=== PATIENT | male | born 1960 | race Caucasian/White ===

== ENCOUNTER 2019-12-23 19:40 | Inpatient (IN) | payer BC, OTHER ==
[~2019-12-23] VITALS: Ht 182.9 cm; Wt 109.1 kg
[2019-12-23 20:14] LABS: Basophils # (auto) 0 10 ^3/uL (0-0.2); Basophils % (auto) 0.4 % (0.0-2.0); Eosinophils # (auto) 0 10 ^3/uL (0-0.8); Eosinophils % (auto) 0.1 % (0.0-7.0); Hematocrit 48.1 % (41.0-53.0); Hemoglobin 16.9 g/dL (13.5-17.5); Lymphocytes # (auto) 0.5 10 ^3/uL (0.4-5.4); Lymphocytes % (auto) 7.1 % (10.0-50.0); Mean Corpuscular Hemoglobin 33.5 pg (28.0-32.0); Mean Corpuscular Hgb Conc. 35.2 g/dL (32.0-36.0); Mean Corpuscular Volume 95.1 fL (80.0-100.0); Monocytes # (auto) 1.1 10 ^3/uL (0-1.3); Neutrophils # (auto) 6.1 10 ^3/uL (1.6-8.6); Neutrophils % (auto) 78.4 % (37.0-80.0); Nucleated Red Blood Cells % 0.2 %; Platelet Count (auto) 174 10^3/uL (140-450); Red Blood Cells 5.06 10^6/uL (4.5-5.90); White Blood Cell 7.8 10^3/uL (4.4-10.8)
[2019-12-23 20:28] LABS: INR 1.08 (0.9-1.15); Partial Thromboplastin Time 29.9 sec (23.64-32.05)
[2019-12-23 20:30] LABS: Albumin 3.9 g/dL (3.4-5.0); Anion Gap 12 (5-15); Blood Urea Nitrogen 56 mg/dL (7-18); Calcium 8.2 mg/dL (8.5-10.1); Carbon Dioxide 30 mmol/L (21-32); Chloride 70 mmol/L (98-107); Glucose 110 mg/dL (74-106); Potassium 4.1 mmol/L (3.5-5.1)
[2019-12-23 20:35] LABS: Alanine Aminotransferase 58 U/L (16-61); Alkaline Phosphatase 52 U/L (45-117); Aspartate Aminotransferase 42 U/L (15-37); BUN/Creatinine Ratio 19.9; Bilirubin, Total 1.6 mg/dL (0.2-1.0); GFR African American 30 mL/min; GFR Non-African American 25 mL/min; Total Protein 7.2 g/dL (6.4-8.2)
[2019-12-23 20:40] LABS: Sodium 112 mmol/L (136-145)
[2019-12-23] MEDS ORDERED: SODIUM CHL 3% 500 ML IV ONE ×2 (21:00→23:00)
[2019-12-23] MEDS ORDERED: NITROGLYCERIN 0.4 MG SL TAB SL PRN (23:00)
[2019-12-23] MEDS ORDERED: ACETAMINOPHEN 325 MG TAB PO PRN (23:00)
[2019-12-23] MEDS ORDERED: ONDANSETRON HCL 4 MG/2 ML VIAL IV PRN (23:00)
[2019-12-23] MEDS ORDERED: LOPERAMIDE HCL 2 MG CAP PO PRN (23:00)
[2019-12-23] MEDS ORDERED: MORPHINE SULF INJ 2 MG/ML SYRINGE 1ML IV PRN (23:00)
[2019-12-23] MEDS ORDERED: TEMAZEPAM 15 MG CAP PO PRN (23:00)
[2019-12-23 23:37] LABS: Urine Bacteria FEW /hpf (None Seen); Urine Blood Negative /uL (Negative); Urine Hyaline Cast FEW /lpf (0 - 2); Urine Specific Gravity 1.007 (1.001-1.035); Urine WBC 1 /hpf (0 - 3)
[2019-12-24] VITALS (8 sets, daily range): BP systolic 92–158; BP diastolic 55–78
[2019-12-24] MEDS ORDERED: ALBUMIN 5% 250 ML IV ONE (00:30)
[2019-12-24 02:13] LABS: Basophils # (auto) 0 10 ^3/uL (0-0.2); Basophils % (auto) 0.6 % (0.0-2.0); Eosinophils # (auto) 0 10 ^3/uL (0-0.8); Eosinophils % (auto) 0.3 % (0.0-7.0); Hematocrit 49.6 % (41.0-53.0); Hemoglobin 17.1 g/dL (13.5-17.5); Lymphocytes # (auto) 0.5 10 ^3/uL (0.4-5.4); Mean Corpuscular Hemoglobin 33.6 pg (28.0-32.0); Mean Corpuscular Hgb Conc. 34.5 g/dL (32.0-36.0); Mean Corpuscular Volume 97.3 fL (80.0-100.0); Monocytes # (auto) 0.9 10 ^3/uL (0-1.3); Monocytes % (auto) 12.6 % (0.0-12.0); Neutrophils # (auto) 5.4 10 ^3/uL (1.6-8.6); Neutrophils % (auto) 79.5 % (37.0-80.0); Platelet Count (auto) 170 10^3/uL (140-450); Red Blood Cells 5.09 10^6/uL (4.5-5.90); Red Cell Distribution Width 14.9 % (11.8-14.3); White Blood Cell 6.8 10^3/uL (4.4-10.8)
[2019-12-24 02:26] LABS: BUN/Creatinine Ratio 20.9; Calcium 8.3 mg/dL (8.5-10.1)
--- NOTE | 2019-12-24 07:30 | NUR ---
Opening Shift Note Assumed care of patient, awake and alert. No S/S of distress/SOB or pain. Patient saturation 95% at room air. See interventions for complete assessment. Bed locked on low position, side rails up x2, bed alarms on at all times, call guzmán within reach, instructed on POC and to call for assist PRN, will continue to monitor for changes Q1hr and PRN.
[2019-12-24 08:12] LABS: BUN/Creatinine Ratio 22.9; Calcium 8.4 mg/dL (8.5-10.1); Potassium 3.7 mmol/L (3.5-5.1)
[2019-12-24] MEDS: ENOXAPARIN SOD 40 MG/0.4 ML SYRINGE SC SCH (09:34)
[2019-12-24] MEDS: FAMOTIDINE 20 MG TAB PO SCH ×2 (09:34→21:34)
[2019-12-24] MEDS ORDERED: OPTISON 3ml Vial for INJ IV ONE (11:11)
--- NOTE | 2019-12-24 11:15 | NUR ---
LT AC IV puffy and pink, discontinued with sterile technique, catheter fully intact. Pressure dressing applied to site. Patient tolerated procedure well.
--- NOTE | 2019-12-24 11:20 | NUR ---
IV insertion IV access obtained, via clean sterile technique by inserting 22 gauge catheter at RT forearm after one attempt. IV secured properly. No trauma to site. Patient tolerated procedure well.
--- NOTE | 2019-12-24 11:25 | NUR ---
Echocardiogram being done at bedside, assisted with bubble study and optison push. Patient denies any drug or blood product allergies. Optison lot number [id number]. 1ml Optison SIVP given over 30 seconds. No adverse reaction noted. Will continue to monitor patient.
--- NOTE | 2019-12-24 11:42 | NUR ---
Dr Wynn at bedside, updated on patient's status. Patient seen and examined. Received verbal order for Regular diet, read back and verified. Will carry out.
[2019-12-24] MEDS ORDERED: MAGNESIUM OXIDE 400 MG TAB PO ONE (12:15)
--- NOTE | 2019-12-24 12:28 | NUR ---
Received call from patient's Shandra who's able to provide password. Updated on patient's status and POC, verbalized understanding. All questions and concerns addressed.
[2019-12-24] MEDS ORDERED: SODIUM CHLORIDE 0.9% 1,000 ML IV SCH ×2 (12:30→13:45)
[2019-12-24] MEDS: MAGNESIUM SULFATE 1GM/100ML 100 ML IV SCH ×2 (12:42→13:43)
[2019-12-24] MEDS ORDERED: HYDR50TA15 PO (12:53)
[2019-12-24] MEDS ORDERED: LISI40TA PO (12:53)
[2019-12-24] MEDS ORDERED: FURO40TA4 PO (12:53)
[2019-12-24] MEDS ORDERED: ISOS20TA56 PO (12:53)
[2019-12-24] MEDS ORDERED: AMLO5TAB15 PO (12:53)
[2019-12-24] MEDS ORDERED: ASPI-498 OR (12:53)
--- NOTE | 2019-12-24 13:54 | NUR ---
Urine sample sent to lab
[2019-12-24 15:06] LABS: Sodium Urine 50 mmol/L (40-220)
[2019-12-24 15:09] LABS: Creatinine, Urine 47 mg/dL (30.0-125.0)
[2019-12-24 17:05] LABS: BUN/Creatinine Ratio 21.6; Calcium 8.7 mg/dL (8.5-10.1); Potassium 3.9 mmol/L (3.5-5.1)
--- NOTE | 2019-12-24 17:07 | NUR ---
BMP still pending
--- NOTE | 2019-12-24 17:20 | NUR ---
Paged Dr Cottrell and called back, updated on patient's status. Informed of patient's sodium level 120, no new orders at this time.
--- NOTE | 2019-12-24 19:15 | NUR ---
Assumed care, full assessment done; see interventions. Patient ambulated to bathroom with standby assist, steady gate noted. Hemodynamically stable. Right hand 22 G IV intact and patent, NS infusing per IV spreadsheet.
[2019-12-24] MEDS: methIMAzole 5 MG TAB PO SCH (22:00)
--- NOTE | 2019-12-24 22:14 | NUR ---
New order for Tapazole noted for administration at 2200; spoke with pharmacist who stated she was concerned about the "need" for the medication but that she would verify it for administration los and JAHAIRA RN can follow up with . Attempted to page Dr. 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
[2019-12-25 03:45] LABS: BUN/Creatinine Ratio 22.9; Calcium 8.8 mg/dL (8.5-10.1); Potassium 3.6 mmol/L (3.5-5.1)
[2019-12-25 04:00] VITALS: BP 123/69
--- NOTE | 2019-12-25 06:47 | NUR ---
Called pharmacy to send tapazole.
[2019-12-25 07:40] VITALS: BP 130/79
[2019-12-25] MEDS ORDERED: FUROSEMIDE 40 MG/4 ML VIAL IV ONE (08:15)
--- NOTE | 2019-12-25 09:28 | NUR ---
Resumed care at 0710, orders reviewed and ongoing assessments being done. Being treated for multiple problems. Upon arrival in bed and able to make needs known, in no acute distress and no complaints. Is able to move all extremities and participate with self care. Reviewed plan of care, comprehensive. Out of bed and sitting in chair at this time. Received call from Dr. Shirley, reviewed labs and medication, orders obtained and processed.
--- NOTE | 2019-12-25 10:05 | NUR ---
Dr. Wynn in to round. Discussed condition and plan of care.
[2019-12-25] MEDS: MAGNESIUM OXIDE 400 MG TAB PO SCH (10:20)
[2019-12-25] MEDS: ENOXAPARIN SOD 40 MG/0.4 ML SYRINGE SC SCH (10:20)
[2019-12-25] MEDS: FAMOTIDINE 20 MG TAB PO SCH (10:20)
[2019-12-25 11:40] VITALS: BP 114/53
--- NOTE | 2019-12-25 13:48 | NUR ---
Faxed medical release form to [facility] in [facility] (Dr. Wynn request) Consent obtained.
[2019-12-25] MEDS: methIMAzole 5 MG TAB PO SCH ×2 (14:00→22:00)
[2019-12-25 14:10] LABS: BUN/Creatinine Ratio 18.3; Calcium 8.9 mg/dL (8.5-10.1); Potassium 3.7 mmol/L (3.5-5.1)
--- NOTE | 2019-12-25 15:39 | NUR ---
Dr. Shirley rounded at 1150. Discussed condition and plan of care. Per Dr. Shirley strict I & O's and reinforced importance of using the urinal to void in.
--- NOTE | 2019-12-25 15:45 | NUR ---
Held scheduled 1400 Tapazole, new order. Per patient doctor did not discuss abnormal lab result and possible hyperthyroidism. Contacted Dr. Wynn at 1500. He could not talk and will call back.
[2019-12-25 15:49] VITALS: BP 117/69
--- NOTE | 2019-12-25 18:04 | NUR ---
Dr. Ann consulted for cardiology. Discussed plan of care and new orders reviewed.
--- NOTE | 2019-12-25 18:25 | NUR ---
In bed eating dinner in no acute distress. Remains in AFIB with a rate 99-112. Encourage to maintain nasal cannula on at all times. When on room air, pulse oximetry drops to 86-88%.
[2019-12-25 20:00] VITALS: BP 115/65
--- NOTE | 2019-12-25 22:00 | NUR ---
Stable. Refusing medication for thyroid until MD explains reason for medication. States he "takes too many pills at home as it is." Will consider taking after speaking to MD. Will continue to monitor.
[2019-12-25] MEDS: ENOXAPARIN SOD 60 MG/0.6 ML SYRINGE SC SCH (23:09)
[2019-12-25] MEDS: DRONEDARONE HCL 400 MG TAB PO SCH (23:09)
[2019-12-26] VITALS: BP 115/60
--- NOTE | 2019-12-26 | NUR ---
Pt has remained stable since start of shift. Has spent most of his time out of bed in his chair at bedside. Compliant with using urinal. Urine sample sent to lab. Will continue to monitor.
[2019-12-26 00:08] LABS: Protein, Urine 193.6 mg/dL (0.0-11.9)
[2019-12-26 04:30] LABS: Anion Gap 8 (5-15); BUN/Creatinine Ratio 24.1; Blood Urea Nitrogen 35 mg/dL (7-18); Calcium 8.5 mg/dL (8.5-10.1); Carbon Dioxide 31 mmol/L (21-32); Chloride 82 mmol/L (98-107); GFR African American 64 mL/min; GFR Non-African American 53 mL/min; Glucose 87 mg/dL (74-106); Magnesium 1.6 mg/dL (1.6-2.6); Potassium 4.3 mmol/L (3.5-5.1); Sodium 121 mmol/L (136-145)
--- NOTE | 2019-12-26 05:47 | NUR ---
Stable at this time. Up in his chair at bedside. Anxious to go home. Will continue to monitor.
--- NOTE | 2019-12-26 07:23 | NUR ---
Pt remains stable. Report given to AM shift, care endorsed.
--- NOTE | 2019-12-26 07:30 | NUR ---
Provided the information about Multaq and Tapazole to patient.
--- NOTE | 2019-12-26 07:35 | NUR ---
Opening Shift Note Assumed care of patient, awake and alert, sitting on the cjair and watching TV, stated that would like to go home if MD okay. No S/S of distress/SOB or pain noted. Instructed on POC and to call for assist PRN, will continue to monitor for changes Q1hr and PRN.
--- NOTE | 2019-12-26 08:10 | NUR ---
Patient sitting on the chair, breakfast provided.
[2019-12-26] MEDS: methIMAzole 5 MG TAB PO SCH (08:49)
[2019-12-26] MEDS: DRONEDARONE HCL 400 MG TAB PO SCH ×2 (08:50→20:53)
[2019-12-26] MEDS: MAGNESIUM OXIDE 400 MG TAB PO SCH (08:51)
[2019-12-26] MEDS: ENOXAPARIN SOD 60 MG/0.6 ML SYRINGE SC SCH ×2 (08:52→20:54)
[2019-12-26] MEDS: ASPirin 81 mg TAB PO SCH (08:52)
--- NOTE | 2019-12-26 09:08 | NUR ---
Room air at this time, patient ambulate to bathroom. Lawanda to take Tapazole after provided the information about medication, no question about the medication at this time.
--- NOTE | 2019-12-26 09:28 | NUR ---
Room air, sitting on the chair, O2 saturation 83-87%. Patient stated that has CPAP at home using at night time.
--- NOTE | 2019-12-26 09:39 | NUR ---
On O2 NC 2 LPM, patient still sitting up on the chair, watching TV, no complaining any symptoms, O2 saturation 92-94%. Will continue to monitor and care.
[2019-12-26] MEDS ORDERED: FAMOTIDINE 20 MG TAB PO SCH (10:00)
[2019-12-26] MEDS ORDERED: FUROSEMIDE 40 MG/4 ML VIAL IV SCH (10:00)
[2019-12-26] MEDS ORDERED: POTASSIUM EFFERVESENT TAB 25 MEQ PO ONE (10:30)
--- NOTE | 2019-12-26 10:41 | NUR ---
Provided the information about Cardioversion and NAYELI per patient requested.
--- NOTE | 2019-12-26 11:20 | NUR ---
Dr. Chino at the bedside, seen and examined patient at his time, plan of care discussed with patient, received new orders, patient made aware and would like to discharge home today. MD aware but patient isn't stable to discharge today, MD explained about the risks of leaving against medical advise. Called and spoke to his on the phone, updated and explained the plan of care. Patient agreed to stay at this time. Will continue to monitor and care.
--- NOTE | 2019-12-26 11:43 | NUR ---
Received a call from Dr. Ann, updated patient's condition and Lab result this morning. Received new orders, will carry out, Patient and his made aware about the plan.
[2019-12-26] MEDS: METOPROLOL TARTRATE 25 MG TAB PO ONE ×2 (11:45→12:06)
[2019-12-26] MEDS ORDERED: METOPROLOL TARTRATE 25 MG TAB ONE (11:58)
[2019-12-26] MEDS: MAGNESIUM SULFATE 1GM/100ML 100 ML IV SCH ×3 (11:58→15:00)
[2019-12-26 12:00] VITALS: BP 104/62
--- NOTE | 2019-12-26 12:21 | NUR ---
Room air O2 saturation 85-88%, will continue to monitor and care, patient went to the restroom for BM, patient stated that still having loose stool but not often, will continue to monitor and care.
--- NOTE | 2019-12-26 12:30 | NUR ---
On O@ NC 2LPM, O2 saturation 94-96%, will continue to monitor and care, Lunch tray provided.
--- NOTE | 2019-12-26 13:33 | NUR ---
Dr. Shirley at the bedside, seen and examined patient at this time, plan of care discussed with patient, will keep monitor I&O. No IV fluid, patient made was informed about fluid restriction to 800 ml/day, no ICE chip. Patient agreed with the plan.
--- NOTE | 2019-12-26 14:00 | NUR ---
SBP 90-95 mmHg, informed Dr. Ann about holding Metoprolol due to low blood pressure. Receive order for decreased Metoprolol to 12.5 mg PO BID and hold if SBP < 100 mmHg. Patient made aware about the plan. Will continue to monitor and care.
[2019-12-26] MEDS ORDERED: METOPROLOL TARTRATE 25 MG TAB PO ONE (14:15)
--- NOTE | 2019-12-26 15:20 | NUR ---
HR 85-90 /min after Metoprolol given. On O2 NC 2 LPM, O2 saturation 94%. Will continue to monitor and care.
--- NOTE | 2019-12-26 15:54 | NUR ---
Patient went to the bathroom. Partial linen changed. Hygiene care supplies provided.
[2019-12-26 16:00] VITALS: BP 116/77
--- NOTE | 2019-12-26 16:18 | NUR ---
Came back from the bathroom, stated that feeling better, went back to bed, keep legs elevated, patient lying on the bed and watching TV.
--- NOTE | 2019-12-26 17:30 | NUR ---
Patient walked at the hallway and went back to his room, sitting on the chair. No complaining of SOB noted.
[2019-12-26] MEDS: FUROSEMIDE 40 MG/4 ML VIAL IV SCH (17:53)
--- NOTE | 2019-12-26 18:09 | NUR ---
IV insertion IV access obtained, via clean sterile technique by inserting 20 gauge catheter at right forearm after 1 attempt. IV secured properly. No trauma to site. Patient tolerated procedure well.
--- NOTE | 2019-12-26 18:10 | NUR ---
IV removal from right hand IV DC'd with sterile technique, catheter fully intact. Pressure dressing applied to site. Patient tolerated procedure well.
--- NOTE | 2019-12-26 18:12 | NUR ---
Dinner tray provided, patient sitting on the chair.
--- NOTE | 2019-12-26 18:55 | NUR ---
Patient went back to bed, on o2 NC 3 LPM, O2 saturation 92-94%. HR 90-110 with A.Fib, SBP 100-130 mmHg. Will continue to monitor and care.
[2019-12-26 20:00] VITALS: BP 120/69
[2019-12-26] MEDS: FAMOTIDINE 20 MG TAB PO SCH (20:54)
[2019-12-26] MEDS ORDERED: METOPROLOL TARTRATE 25 MG TAB PO SCH ×2 (22:00)
--- NOTE | 2019-12-26 23:38 | NUR ---
Since beginning of shift pt seems confused and is progressively getting more confused. No Sleep aid was given. Pt has been wandering all shift and detaching himself from the monitor, oxygen, and pulse ox off and on all shift. Pt has not slept. At one point pt thought RN was under his bed teasing him by touching his feet. Pt did not sleep last night either except for a couple of hours, and in that time stated he had bad and weird dreams. Last night pt was given a sleep aid and in the AM pt and RN decided that the following night he would not have another sleep aid. ABG ordered to see if pt is compensating in some way and causing the confusion. Pt currently up in chair, off O2 and pulse ox talking on phone to his . Pt is upset that he has to be hooked up to the monitor. Will continue to monitor.
[2019-12-27] VITALS: BP 116/77
--- NOTE | 2019-12-27 01:09 | NUR ---
Pt is very confused. Having hallucinations. paged for bipap orders and also to let him know what is happening. RN looked up Lopressor side effect and on rare occasion pt can have confusion and side effects. Since start of shift pt has been slightly confused and unsteady. A 2200 dose was given and pt has gotten worse. Upon researching drug is it my observation that these rare side effects could be from Lopressor. Assessment was noted and was relayed to Dr. Patel. stated to hold drug for now, and MD was informed that no dose was due but would hold AM dose and inform Dr. Ann in AM as he is the MD that ordered the Lopressor. is extremely upset as pt is calling on cell phone. Pt woke thinking there was someone in his room and a car was driving by his door. Assure pt he is ok and being looked after. Bipap ordered, RT called and will continue to monitor.
--- NOTE | 2019-12-27 01:20 | NUR ---
RT at bedside setting up Bipap. Pt is having a hard time with time and place. Reorienting but very difficult.
[2019-12-27 01:27] VITALS: BP 120/69
[2019-12-27] MEDS ORDERED: LORazepam 2MG/ML-1ML VIAL IV PRN (02:15)
--- NOTE | 2019-12-27 03:43 | NUR ---
Ativan has made pt worse. Sitter now at bedside for safety although pt got up and ripped off his leads and came out of his room looking for the bathroom. Pt is completely confused. LEAD PYTHON DEVELOPER now a sitter at bedside. Will continue to monitor.
--- NOTE | 2019-12-27 03:45 | NUR ---
Pt now pulled out IV while in the bathroom. Will reset.
[2019-12-27 03:56] LABS: Basophils # (auto) 0.1 10 ^3/uL (0-0.2); Basophils % (auto) 1.2 % (0.0-2.0); Eosinophils # (auto) 0.1 10 ^3/uL (0-0.8); Eosinophils % (auto) 1.3 % (0.0-7.0); Hematocrit 46.2 % (41.0-53.0); Hemoglobin 15.7 g/dL (13.5-17.5); Lymphocytes # (auto) 0.5 10 ^3/uL (0.4-5.4); Lymphocytes % (auto) 9.1 % (10.0-50.0); Mean Corpuscular Volume 96.9 fL (80.0-100.0); Monocytes # (auto) 0.8 10 ^3/uL (0-1.3); Neutrophils # (auto) 3.7 10 ^3/uL (1.6-8.6); Neutrophils % (auto) 73.4 % (37.0-80.0); Nucleated Red Blood Cells % 0.2 %; Platelet Count (auto) 130 10^3/uL (140-450); Red Blood Cells 4.76 10^6/uL (4.5-5.90); Red Cell Distribution Width 14.7 % (11.8-14.3); White Blood Cell 5.1 10^3/uL (4.4-10.8)
[2019-12-27 04:14] LABS: Potassium 3.9 mmol/L (3.5-5.1)
[2019-12-27 04:17] LABS: Albumin 3.3 g/dL (3.4-5.0); BUN/Creatinine Ratio 22.9; Magnesium 1.9 mg/dL (1.6-2.6)
[2019-12-27 04:20] LABS: Bilirubin, Total 1.8 mg/dL (0.2-1.0); Total Protein 6.8 g/dL (6.4-8.2)
--- NOTE | 2019-12-27 04:41 | NUR ---
New IV to right forearm, 22g, pt tolerated well. Sitter remains at bedside.
--- NOTE | 2019-12-27 06:13 | NUR ---
Pt remains confused. Insists he is at a market. Refuses to go to his room. Removed all leads and monitoring items, cut off his fall band.
--- NOTE | 2019-12-27 06:40 | NUR ---
Security was called. Just to show support. Pt went back to his room and allowed me to place him back on monitor. They will allow to come sit with him and calm him. Pt is very mad at RN thinking she tried to get him arrested. Pulled out IV and stated he can do whatever he wants with his arm. Is only keeping monitor leads on at this time. Informed pt his will be here in 1 hour.
--- NOTE | 2019-12-27 07:26 | NUR ---
at bedside. Pt pulled off monitor leads before she came. Because Security is on the unit due to bringing to floor, pt allowed ATTORNEY to reapply cardiac leads. Report given to AM shift, care endorsed.
[2019-12-27] MEDS ORDERED: levoFLOXacin 500 MG TAB PO ONE (07:30)
--- NOTE | 2019-12-27 07:45 | NUR ---
Opening Shift Note Assumed care of patient, awake, his at the bedside, patient sitting on the chair, orientated to person, place, time, but not situation, patient stated that i'm working in the [facility], patient said he remembered me but couldn't remember my name, still has hallucination, reorientation needed. No S/S of distress/SOB or pain noted, still pulling put the ekg monitor tech, refused to have IV in place at this time, will try after breakfast. Instructed (giving to his and patient) on POC and to call for assist PRN, will continue to monitor for changes Q1hr and PRN.
[2019-12-27 08:00] VITALS: BP 123/75
--- NOTE | 2019-12-27 08:05 | NUR ---
Faxed food requested to kitchen, line is busy. Called and left the message to Furrier Designer at this time.
--- NOTE | 2019-12-27 08:08 | NUR ---
Received a call back from Dr. Ann, informed MD about patient having period of confusion and hallucination possible due to Medication (Metoprolol), reported the lab result, received orders for D/C Metoprolol and magnesium 800 mg PO BID . Will carry out, patient and his made aware about the plan.
--- NOTE | 2019-12-27 09:11 | NUR ---
Faxed still busy for the kitchen, called and left the message again to motor rebuilder regarding patient doesn't like to food nereida the tray. Provided the sandwich from the refrigerator. 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 His at the bedside, reorientated. Will continue to monitor and care.
[2019-12-27] MEDS: MAGNESIUM OXIDE 400 MG TAB PO SCH ×2 (09:35→22:22)
[2019-12-27] MEDS: FAMOTIDINE 20 MG TAB PO SCH ×2 (09:35→22:21)
[2019-12-27] MEDS: methIMAzole 5 MG TAB PO SCH (09:35)
[2019-12-27] MEDS: POTASSIUM EFFERVESENT TAB 25 MEQ PO SCH (09:35)
[2019-12-27] MEDS: DRONEDARONE HCL 400 MG TAB PO SCH ×2 (09:36→22:22)
[2019-12-27] MEDS: ENOXAPARIN SOD 60 MG/0.6 ML SYRINGE SC SCH ×2 (09:36→22:21)
[2019-12-27] MEDS: ASPirin 81 mg TAB PO SCH (09:36)
[2019-12-27] MEDS: FUROSEMIDE 40 MG/4 ML VIAL IV SCH ×2 (09:36→17:54)
--- NOTE | 2019-12-27 09:56 | NUR ---
IV insertion IV access obtained, via clean sterile technique by inserting 20 gauge catheter at right forearm after 1 attempt(s). IV secured properly. No trauma to site. Patient tolerated procedure well.
--- NOTE | 2019-12-27 10:01 | NUR ---
His at the bedside, breakfast tray provided after sent the request to automotive technology instructor. Patient sitting on the chair. took the morning pills as ordered.
--- NOTE | 2019-12-27 10:10 | NUR ---
Patient still confused, sitting on the chair has his at the bedside, his (Juliet) signed the consent for NAYELI and/or Cardioversion.
--- NOTE | 2019-12-27 10:31 | NUR ---
Sent the urine sample to lab.
--- NOTE | 2019-12-27 10:40 | NUR ---
Dr. Shirley at the bedside, seen and examined patient at this time, plan of care discussed with patient and his , received new orders, patient made aware. Will continue to monitor and care.
--- NOTE | 2019-12-27 10:49 | NUR ---
Patient was taken to Radiology for CT chest.
[2019-12-27] MEDS: UREA 15gm PO Powder PKG PO SCH ×2 (11:07→22:20)
--- NOTE | 2019-12-27 11:07 | NUR ---
Patient came back from Radiology. Still refused to be connected to Monitor and O2. His at the bedside, patient still confused, still thinking that [facility] [place]. Reoriented and explained. Patient less aggressive when he has his occupied. Room air O2 saturation 88%. Will continue to monitor and care.
[2019-12-27 11:27] VITALS: BP 169/80
--- NOTE | 2019-12-27 11:50 | NUR ---
Patient went back to bed, less aggressive with his at the bedside. Connected to monitor at this time. Still refused O2 NC, room air O2 saturation 88-92%, will continue to monitor and care.
[2019-12-27 11:51] VITALS: BP 134/79
--- NOTE | 2019-12-27 12:30 | NUR ---
Dr. Chino at the bedside, seen and examined patient at this time, plan of care discussed with patient and his , answered all the questions. D/C some medications. Will continue to monitor and care.
--- NOTE | 2019-12-27 13:34 | NUR ---
Patient sitting on the chair, finished his Lunch, had around 90%, no N/V noted.
--- NOTE | 2019-12-27 13:44 | NUR ---
Called and left the message to Dr. Simpson for new consultation. Received a call back from Dr. Simpson, today will be Dr. Erazo that see patient. Dr. Calvin nielson informed Dr. Erazo about new consultation.
--- NOTE | 2019-12-27 14:18 | NUR ---
Nutrition Assessment Notes please see attached link fo complete assessment Est. Needs ABW 95 [id number] kcals (23-25 kcal/kgBW). 76-95 gms/day (0.8-1.0gm/kgBW r/t elev RFT). Will continue to monitor pertinent labs and reassess nutrient need prn. Addendum: 12/27/19 at [address] Amended: Links added.
--- NOTE | 2019-12-27 15:20 | NUR ---
Patient is sleeping at this time, able to take a short nap around 30-45 minutes earlier as well. His still at the bedside. No aggressive behavior noted.
--- NOTE | 2019-12-27 17:34 | NUR ---
Dr. Erazo at the bedside, seen and examined patient at this time. Received order for CXR tomorrow, ultrasound both legs R/O DVT, spoke to Lab, will add the orders for Urine legionella, and Microplasma (IgM) antibody, will check for [facility]C Covid inhouse.
--- NOTE | 2019-12-27 18:21 | NUR ---
Sent [facility] inhouse Covid 19 to lab.
--- NOTE | 2019-12-27 18:22 | NUR ---
Patient sitting up on the chair, Dinner tray provided.
--- NOTE | 2019-12-27 18:38 | NUR ---
Ultrasound at the unit, will postpone the test to tomorrow due to waiting for the result of [facility] inhouse Covid.
[2019-12-27 20:00] VITALS: BP 126/77
--- NOTE | 2019-12-27 20:00 | NUR ---
ASSESSMENT PATIENT IS AWAKE, ALERT, ORIENTED BUT GET CONFUSED ON SITUATION. EKG SHOWS AFIB. OTHER VITAL SIGNS ARE STABLE.
[2019-12-28] VITALS (19 sets, daily range): BP systolic 105–151; BP diastolic 63–105
--- NOTE | 2019-12-28 | NUR ---
PATIENT IS NPO FOR PROCEDURE TODAY.
[2019-12-28 03:50] LABS: Hematocrit 48.5 % (41.0-53.0); Hemoglobin 16.7 g/dL (13.5-17.5); Mean Corpuscular Hemoglobin 33.4 pg (28.0-32.0); Mean Corpuscular Hgb Conc. 34.5 g/dL (32.0-36.0); Mean Corpuscular Volume 96.9 fL (80.0-100.0); Platelet Count (auto) 131 10^3/uL (140-450); Red Cell Distribution Width 14.4 % (11.8-14.3); White Blood Cell 4.3 10^3/uL (4.4-10.8)
[2019-12-28 04:00] LABS: Basophils % (manual) 0 (0.0-2.0); Blast Cells 0; Metamyelocytes % 0; Myelocytes % 0; Promyelocytes % 0; Reactive Lymphocytes 0
[2019-12-28 04:08] LABS: Calcium 9.3 mg/dL (8.5-10.1); Potassium 3.8 mmol/L (3.5-5.1)
[2019-12-28 04:10] LABS: BUN/Creatinine Ratio 32.7
[2019-12-28] MEDS: FUROSEMIDE 40 MG/4 ML VIAL IV SCH ×2 (05:47→18:29)
--- NOTE | 2019-12-28 06:01 | NUR ---
Respiratory note: PT IS USING THE RESTROOM. PT IS OFF OXYGEN WITH SPO2 97% HR 97. RR 16. NO SIGNS OR SYMPTOMS OF RESPIRATORY DISTRESS NOTED AT THIS TIME. WILL CONTINUE TO MONITOR ORDERED. Addendum: 12/28/19 at 0604 by CHANDLER GARDNER RT PT IS NOT ON BIPAP.
[2019-12-28 06:30] LABS: Band Neutrophils % (manual) 5; Eosinophils % (manual) 3 (0-7); Lymphocytes % (manual) 23 (10.0-50.0); Monocytes % (manual) 22 (0-12)
[2019-12-28] MEDS: ASPirin 81 mg TAB PO SCH ×2 (09:11→10:00)
[2019-12-28] MEDS: FAMOTIDINE 20 MG TAB PO SCH ×3 (09:11→21:33)
[2019-12-28] MEDS: DRONEDARONE HCL 400 MG TAB PO SCH ×3 (09:11→18:28)
[2019-12-28] MEDS: levoFLOXacin 500 MG TAB PO SCH ×3 (09:12→18:31)
[2019-12-28] MEDS: MAGNESIUM OXIDE 400 MG TAB PO SCH ×2 (09:12→10:00)
[2019-12-28] MEDS: ENOXAPARIN SOD 60 MG/0.6 ML SYRINGE SC SCH ×2 (09:14→10:00)
--- NOTE | 2019-12-28 09:34 | NUR ---
BREAKFAST TRAY HELD FOR PROCEDURE.
[2019-12-28] MEDS: methIMAzole 5 MG TAB PO SCH (10:00)
[2019-12-28] MEDS ORDERED: levoFLOXacin 500 MG TAB PO SCH (10:00)
[2019-12-28] MEDS: POTASSIUM EFFERVESENT TAB 25 MEQ PO SCH (10:00)
--- NOTE | 2019-12-28 10:00 | NUR ---
ACTIVITY PATIENT OOB SITTING IN CHAIR, AMBULATING AROUND ROOM INDEPENDENTLY.
--- NOTE | 2019-12-28 10:00 | NUR ---
PO MEDICATIONS HELD FOR PROCEDURE. LOVENOX HELD FOR PROCEDURE.
--- NOTE | 2019-12-28 11:35 | NUR ---
PROCEDURE CHANGED TO BEDSIDE AT 1600. PATIENT NOTIFIED AND VERBALIZES UNDERSTANDING. PT TO REMAIN NPO.
--- NOTE | 2019-12-28 12:00 | NUR ---
LUNCH HELD. PT NPO FOR PROCEDURE.
--- NOTE | 2019-12-28 14:00 | NUR ---
PATIENT OOB SITTING IN CHAIR. PATIENT UPDATED AT BEDSIDE VIA PHONE. NO DISTRESS NOTED.
[2019-12-28] MEDS ORDERED: diphenhdrAMINE HCL 50 MG/1 ML VL ONE (15:12)
[2019-12-28] MEDS ORDERED: fentaNYL CITRATE 100 MCG/2 ML VL ONE (15:13)
[2019-12-28] MEDS ORDERED: MIDAZOLAM HCL 1MG/1ML-2 ML VIAL ONE (15:13)
[2019-12-28] MEDS ORDERED: diphenhdrAMINE HCL 50 MG/1 ML VL IV ONE (15:45)
[2019-12-28] MEDS ORDERED: MIDAZOLAM HCL 5 MG/ML-1ML VIAL IV ONE (15:45)
[2019-12-28] MEDS ORDERED: fentaNYL CITRATE 100 MCG/2 ML VL IV ONE (15:45)
[2019-12-28] MEDS ORDERED: LIDOCAINE VISCOUS 2% 15ML UD ONE (16:31)
--- NOTE | 2019-12-28 16:32 | NUR ---
BEDSIDE PROCEDURE BEDSIDE NAYELI PERFORMED AT BEDSIDE: DR. CRISTINA UPDATED PATIENT ON PROCEDURE. CONSENTS COMPLETED. PT NPO. PT AT BEDSIDE. CHARGE NURSE AT BEDSIDE. 1632 1MG VERSED GIVEN IVP 25MCG OF FENT IVP. PT ON 4L/MIN NC POX 95-96%. 1638 BENADRYL IVP 50MG IVP GIVEN ORDERED. 1639 VERSED IVP 1MG GIVEN 200 JOULES CARDIOVERSION COMPLETED BY MD AT BEDSIDE. PATIENT NOTED IN SR THEN BACK TO ARRHYTHMIA. 1646 200 JOULES CARDIOVERSION COMPLETED BY MD. PATIENT NOTED IN SR WITH PVC'S. 1648 10MG OF LABETALOL IVP GIVEN. 1648 LABETALOL GIVEN PATIENTS VSS. CLOSELY MONITORING AT BEDSIDE. EKG TAKEN. MD REVIEWED. SEE NEW ORDERS.
[2019-12-28] MEDS ORDERED: LABETALOL HCL 5 MG/ML ML 20ML VIAL IV ONE (16:43)
[2019-12-28] MEDS ORDERED: LIDOCAINE VISCOUS 2% 15ML UD PO ONE (16:45)
[2019-12-28] MEDS ORDERED: LABETALOL HCL 5 MG/ML 4ML SYRINGE IV ONE ×2 (16:45→17:00)
[2019-12-28] MEDS ORDERED: AMIODARONE HCL (50 MG/ ML) 3 ML VIAL IV ONE (16:49)
[2019-12-28] MEDS ORDERED: AMIODARONE 100 MG IV ONE (17:00)
[2019-12-28] MEDS ORDERED: D5W 5% IV ONE ×2 (18:00→18:15)
[2019-12-28] MEDS ORDERED: AMIODARONE HCL IV ONE ×2 (18:00→18:15)
[2019-12-28] MEDS: APIXABAN 5 MG TAB PO SCH ×2 (18:29→18:31)
[2019-12-28] MEDS: dilTIAZem 120MG ER CAP PO SCH (18:29)
--- NOTE | 2019-12-28 18:29 | NUR ---
2000 MULTAQ GIVEN EARLY PER DR. CRISTINA POST CARDIOVERSION. NOC NURSE AWARE.
--- NOTE | 2019-12-28 18:30 | NUR ---
DINNER DINNER TRAY PROVIDED. PATIENT ALERT AND ORIENTED. ABLE TO SWALLOW WITHOUT DIFFICULTY. VSS. SITTING UP AT EDGE OF BED.
--- NOTE | 2019-12-28 19:45 | NUR ---
OPENING NOTE Patient is A/OX4, sitting at bedside chair. Patient on monitor running AFIB. Patient on room air, Spo2 at 94%. Physical assessment done-see interventions. Patient wanting to sit in chair for the time being. Patient instructed to call for assistance back into bed, patient verbalized understanding.POC discussed, all questions answered. Call light within reach. Will monitor closely.
--- NOTE | 2019-12-28 19:52 | NUR ---
PER DR. CRISTINA, OK FOR PATIENT TO GO TO TELE TONIGHT AND OK TO BE DISCHARGED ONCE SEEN BY HOSPITALIST IN A.M. NOC NURSE AWARE.
--- NOTE | 2019-12-28 20:51 | NUR ---
REPORT SBAR given to quarrying managerDESTINY Reynoso. All questions answered.
--- NOTE | 2019-12-28 20:53 | NUR ---
Transfer to Tele Patient placed on tele box #8. Patient transferred to [facility] via wheelchair with all personal belongings and hard chart. No distress noted at time of departure.
--- NOTE | 2019-12-28 21:42 | NUR ---
[facility] downgrade to Tele, room 249B. patient admitted to Telemetry unit after SBAR received from DESTINY Purcell. Patient oriented to primary RN, unit, room, bed, and unit policies regarding patient care and visiting hours. Patient now on continuous telemetry monitoring, tele box #8 and telemetry reading on arrival to unit is atrial fibrillation in high 80s-90. Bed is in lowest position and locked. Call light within reach. Board updated. Patient weighed by bedscale and encouraged to call if they need something. All questions and concerns addressed, patient verbalized understanding. Will continue to assess hourly and PRN.
--- NOTE | 2019-12-28 21:48 | NUR ---
Respiratory note: PT REFUSING BIPAP AT THIS TIME. PT WAS DOWNGRADED FROM [facility] AND MOVED TO 249B, BIPAP BROUGHT TO PTS NEW ROOM. ASKED PT WHEN HE WANTED TO GO ON TONIGHT, PT STATES HE DOES NOT WANT TO WEAR IT TONIGHT. SPO2 91% ON RA, HR 77, RR 20. BIPAP LEFT IN ROOM, PT AWARE TO CALL IF HE CHANGES HIS MIND. DENIES ANY OTHER NEEDS.
[2019-12-29 05:00] VITALS: BP 129/76
[2019-12-29] MEDS: FUROSEMIDE 40 MG/4 ML VIAL IV SCH ×2 (06:38→18:07)
[2019-12-29 06:44] LABS: Hemoglobin 15.5 g/dL (13.5-17.5); White Blood Cell 4.6 10^3/uL (4.4-10.8)
[2019-12-29 06:47] LABS: Hematocrit 44.9 % (41.0-53.0); Mean Corpuscular Hemoglobin 33.4 pg (28.0-32.0); Mean Corpuscular Hgb Conc. 34.5 g/dL (32.0-36.0); Mean Corpuscular Volume 96.9 fL (80.0-100.0); Platelet Count (auto) 115 10^3/uL (140-450); Red Blood Cells 4.63 10^6/uL (4.5-5.90); Red Cell Distribution Width 14.8 % (11.8-14.3)
[2019-12-29 06:55] LABS: Potassium 3.6 mmol/L (3.5-5.1)
--- NOTE | 2019-12-29 06:57 | NUR ---
Respiratory note: PT NOTED TO BE OFF BIPAP. BIPAP MACHINE AT FOOT OF BED NOT PLUGGED IN. PT NOTED TO BE IN RESTROOM, IN SHOWER. WILL CHECK BACK WITH PT.
[2019-12-29 06:58] LABS: BUN/Creatinine Ratio 29.6; Magnesium 1.9 mg/dL (1.6-2.6)
[2019-12-29 07:01] LABS: Band Neutrophils % (manual) 0; Blast Cells 0; Eosinophils % (manual) 0 (0-7); Myelocytes % 0; Promyelocytes % 0; Reactive Lymphocytes 0
--- NOTE | 2019-12-29 07:30 | NUR ---
Opening Shift Note Assumed care of patient, awake and alert. No S/S of distress/SOB, no pain noted or reported. Updated on POC and instructed to call for assistance PRN, patient verbalized understanding. Bed locked in lowest position, side rails up x2, call light within reach. Fall precautions in place per safety protocol. Will continue to monitor for changes Q1hr and PRN
[2019-12-29 07:37] LABS: Basophils % (manual) 1 (0.0-2.0); Lymphocytes % (manual) 22 (10.0-50.0); Metamyelocytes % 1; Monocytes % (manual) 24 (0-12)
[2019-12-29 08:00] VITALS: BP_SYST 107; BP_SYST 130; BP_DIAS 68; BP_DIAS 89
[2019-12-29] MEDS: POTASSIUM EFFERVESENT TAB 25 MEQ PO SCH (09:52)
[2019-12-29] MEDS: levoFLOXacin 500 MG TAB PO SCH (09:52)
[2019-12-29] MEDS: dilTIAZem 120MG ER CAP PO SCH (09:53)
[2019-12-29] MEDS: FAMOTIDINE 20 MG TAB PO SCH ×2 (09:53→21:35)
[2019-12-29] MEDS: DRONEDARONE HCL 400 MG TAB PO SCH (09:53)
[2019-12-29] MEDS: methIMAzole 5 MG TAB PO SCH (09:53)
[2019-12-29] MEDS: APIXABAN 5 MG TAB PO SCH ×2 (09:53→21:35)
[2019-12-29] MEDS: ASPirin 81 mg TAB PO SCH (09:53)
--- NOTE | 2019-12-29 11:42 | NUR ---
Respiratory note: PT FOUND TO BE SITTING IN CHAIR ON RA, DRESSED STATING HE IS GOING HOME. PT DENIES SOB OR DIFF BREATHING. PT STATED HE DID NOT WEAR THE BIPAP LAST NIGHT AND WOULD NOT BE WEARING IT TONIGHT IF HE DOESN'T GO HOME PT AND RN AWARE TO HAVE RT PAGED IF NEEDED.
[2019-12-29 12:00] VITALS: BP 142/80
--- NOTE | 2019-12-29 12:31 | NUR ---
AMBULATED WITH PATIENT IN THE HALLWAY. NO DISTRESS NOTED
--- NOTE | 2019-12-29 15:09 | NUR ---
PAGED DR CRISTINA REGARDING PATIENT AFIB RHYTHM.
[2019-12-29 17:00] VITALS: BP 107/66
[2019-12-29] MEDS ORDERED: dilTIAZem 120MG ER CAP PO ONE (18:00)
--- NOTE | 2019-12-29 18:54 | NUR ---
Patient rounds Patient awake and alert, sitting up in chair eating dinner, no s/s of distress or sob. Will endorse care to operation shift supervisor RN.
--- NOTE | 2019-12-29 19:20 | NUR ---
Opening Shift Note Assumed care of patient, awake and alert. No S/S of distress/SOB or pain. Patient sitting on chair. Instructed on POC and to call for assist PRN, will continue to monitor for changes Q1hr and PRN.
[2019-12-29 22:00] VITALS: BP 115/73
[2019-12-30 05:32] VITALS: BP 117/68
[2019-12-30] MEDS: FUROSEMIDE 40 MG/4 ML VIAL IV SCH (05:45)
[2019-12-30 06:33] LABS: BUN/Creatinine Ratio 22.4; Calcium 9.2 mg/dL (8.5-10.1); Potassium 4.1 mmol/L (3.5-5.1)
--- NOTE | 2019-12-30 07:35 | NUR ---
Opening Shift Note Assumed care of patient, awake and alert. No S/S of distress/SOB, no pain noted at this time. Updated on POC and instructed to call for assistance PRN, patient verbalized understanding. Bed locked in lowest position, side rails up x2, call light within reach. Fall precautions in place per safety protocol. Will continue to monitor for changes Q1hr and PRN
[2019-12-30 09:05] VITALS: BP 123/67
[2019-12-30] MEDS: ASPirin 81 mg TAB PO SCH (09:18)
[2019-12-30] MEDS: FAMOTIDINE 20 MG TAB PO SCH (09:18)
[2019-12-30] MEDS: methIMAzole 5 MG TAB PO SCH (09:18)
[2019-12-30] MEDS: APIXABAN 5 MG TAB PO SCH (09:18)
[2019-12-30] MEDS: levoFLOXacin 500 MG TAB PO SCH (09:19)
[2019-12-30] MEDS ORDERED: dilTIAZem 120MG ER CAP PO SCH (10:00)
[2019-12-30] MEDS ORDERED: ARIPIPRAZOLE 15 MG PO SCH (11:00)
[2019-12-30] MEDS ORDERED: UREA 15gm PO Powder PKG PO SCH (11:34)
[2019-12-30 12:13] VITALS: BP 118/73
[2019-12-30] MEDS ORDERED: ASPI81CH43 PO ×2 (14:31)
[2019-12-30] MEDS ORDERED: DILT120C12 PO ×2 (14:31)
[2019-12-30] MEDS ORDERED: METH5T PO ×2 (14:31)
[2019-12-30] MEDS ORDERED: POTA-180 PO ×2 (14:31)
[2019-12-30] MEDS ORDERED: FURO1TAB31 PO ×2 (14:31)
[2019-12-30] MEDS ORDERED: APIX5TAB PO ×2 (14:31)
[2019-12-30] MEDS ORDERED: FUROSEMIDE 40 MG/4 ML VIAL IV ONE (14:45)
--- NOTE | 2019-12-30 15:07 | NUR ---
Nutrition Followup Notes Pt wt is 109.1 kg Pt appetite is good aeb 100 x4 PO intake per RN doc. Pt with no distress. Will continue to closely monitor pertinent labs, PO intake and skin status prn. Will followup in 3-5 days Est. Needs ABW 95 [id number] kcals (23-25 kcal/kgBW). 76-95 gms/day (0.8-1.0gm/kgBW r/t elev RFT). Will continue to monitor pertinent labs and reassess nutrient need prn. LABS: GLUC 109 H, BUN 41 H, CR 1.83 H, GFR 40 L, ALB 3.3 L GI: Last BM noted on 12/29 per RN doc BS: 22 low risk. Please refer to wound assessment report for full details. PES: Problem Altered nutrition related lab values r.t current chronic medical condition aeb hyperbil hypercapnia and elev RFT Problem Decreased nutrient needs r/t adiposity aeb pt`s high BMI of 32.6 k Comments 1) Continue assistance with meals 2) Continue current plan of care
--- NOTE | 2019-12-30 15:13 | NUR ---
assessment Patient has no post discharge needs identified. Addendum: 12/30/19 at 1513 by Sade TORRES Amended: Links added.
[2019-12-30 16:09] VITALS: BP 155/80
--- NOTE | 2019-12-30 17:05 | NUR ---
Discharge home Discharge instructions given as ordered. Encourage to follow up with PMD as instructed. All questions and concerns addressed. Patient verbalized understanding. Medication reconciliation form completed and copy given to patient. IV removed with catheter intact, pressure dressing applied. Telemetry unit returned to ICU. Patient taken to vehicle via ambulation with all personal belongings, accompanied by staff. No distress noted at time of departure.
== END 2019-12-30 17:05 | disposition home or self-care (01) | DRG 291 ==
LOC: ER 19:40 → TELE 19:41 → DOU IN ICU 23:34 → TELE-EAST 12-28 20:56
PROVIDERS: ADMIT Nurse Practitioner; ATTEND Internal Medicine
PROC: B24BZZ4 Ultrasonography of Heart with Aorta, Transesophageal (ICD-10-PCS; principal; 2019-12-28)
PROC: 5A2204Z Restoration of Cardiac Rhythm, Single (ICD-10-PCS; 2019-12-28)
DX: I13.0 Hypertensive heart and chronic kidney disease with heart failure and stage 1 through stage 4 chronic kidney disease, or unspecified chronic kidney disease (principal); I50.33 Acute on chronic diastolic (congestive) heart failure; J18.9 Pneumonia, unspecified organism; E22.2 Syndrome of inappropriate secretion of antidiuretic hormone; N17.9 Acute kidney failure, unspecified; I48.20 Chronic atrial fibrillation, unspecified; I95.9 Hypotension, unspecified; I48.0 Paroxysmal atrial fibrillation; R19.7 Diarrhea, unspecified; E66.9 Obesity, unspecified; E05.90 Thyrotoxicosis, unspecified without thyrotoxic crisis or storm; E83.42 Hypomagnesemia; G47.30 Sleep apnea, unspecified; I07.1 Rheumatic tricuspid insufficiency; I67.2 Cerebral atherosclerosis; K57.90 Diverticulosis of intestine, part unspecified, without perforation or abscess without bleeding; M46.00 Spinal enthesopathy, site unspecified; N18.3 Chronic kidney disease, stage 3 (moderate); N40.0 Benign prostatic hyperplasia without lower urinary tract symptoms; Z87.891 Personal history of nicotine dependence; Z79.899 Other long term (current) drug therapy; Z68.32 Body mass index [BMI] 32.0-32.9, adult
CPT/HCPCS: 36415; 36600; 70450; 71045; 71250; 74176; 76775; 80048; 80053; 81001; 82533; 82570; 82805; 83036; 83735; 83880; 83930; 83935; 84154; 84156; 84295; 84300; 84439; 84443; 84484; 84550; 85007; 85025; 85027; 85610; 85730; 86738; 87449; 93005; 93306; 93312; 93970; 94660; 97163; G0378; J2250; J2405; J7060; Q9956

== ENCOUNTER → 2020-01-01 | Outpatient (CLI) | payer BC ==
[~2020-01-01] MED LIST: AMLO5TAB15 PO; APIX5TAB PO; ASPI-498 OR; ASPI81CH43 PO; DILT120C12 PO; FURO1TAB31 PO; FURO40TA4 PO; HYDR50TA15 PO; ISOS20TA56 PO; LISI40TA PO; METH5T PO; POTA-180 PO
[2020-01-01 11:28] LABS: Potassium 3.8 mmol/L (3.5-5.1)
== END | disposition home or self-care (01) ==
LOC: LAB 10:49
PROVIDERS: ATTEND Internal Medicine
DX: I10 Essential (primary) hypertension (principal)
CPT/HCPCS: 36415; 80048; 82306

== ENCOUNTER → 2020-01-08 | Outpatient (CLI) | payer BC ==
[~2020-01-08] MED LIST changes: -AMLO5TAB15 PO; -ASPI-498 OR; -FURO40TA4 PO; -HYDR50TA15 PO; -ISOS20TA56 PO; -LISI40TA PO
[2020-01-08 08:07] LABS: Calcium 8.7 mg/dL (8.5-10.1); Magnesium 2.3 mg/dL (1.6-2.6); Potassium 4.6 mmol/L (3.5-5.1)
[2020-01-08 08:11] LABS: BUN/Creatinine Ratio 13.8
== END | disposition home or self-care (01) ==
LOC: LAB 07:19
PROVIDERS: ATTEND Internal Medicine
DX: E87.1 Hypo-osmolality and hyponatremia (principal); I10 Essential (primary) hypertension
CPT/HCPCS: 36415; 80048; 80061; 83615; 83735

== ENCOUNTER → 2020-01-22 | Outpatient (CLI) | payer BC ==
[2020-01-22 09:30] LABS: BUN/Creatinine Ratio 14.7; Calcium 8.6 mg/dL (8.5-10.1); Potassium 4.2 mmol/L (3.5-5.1)
== END | disposition home or self-care (01) ==
LOC: LAB 08:32
PROVIDERS: ATTEND Internal Medicine
DX: E87.1 Hypo-osmolality and hyponatremia (principal)
CPT/HCPCS: 36415; 80048

== ENCOUNTER → 2020-02-16 | Outpatient (CLI) | payer BC ==
[2020-02-16 10:18] LABS: Basophils # (auto) 0.1 10 ^3/uL (0-0.2); Basophils % (auto) 1.4 % (0.0-2.0); Eosinophils # (auto) 0 10 ^3/uL (0-0.8); Eosinophils % (auto) 0.3 % (0.0-7.0); Hemoglobin 16.5 g/dL (13.5-17.5); Lymphocytes # (auto) 0.5 10 ^3/uL (0.4-5.4); Lymphocytes % (auto) 6.6 % (10.0-50.0); Mean Corpuscular Hemoglobin 34.1 pg (28.0-32.0); Mean Corpuscular Hgb Conc. 33.1 g/dL (32.0-36.0); Mean Corpuscular Volume 103.1 fL (80.0-100.0); Monocytes # (auto) 0.9 10 ^3/uL (0-1.3); Monocytes % (auto) 11.3 % (0.0-12.0); Neutrophils # (auto) 6.6 10 ^3/uL (1.6-8.6); Neutrophils % (auto) 80.4 % (37.0-80.0); Nucleated Red Blood Cells % 0.3 %; Platelet Count (auto) 144 10^3/uL (140-450); Red Blood Cells 4.85 10^6/uL (4.5-5.90); Red Cell Distribution Width 19.9 % (11.8-14.3); White Blood Cell 8.3 10^3/uL (4.4-10.8)
[2020-02-16 10:57] LABS: Albumin 3.7 g/dL (3.4-5.0); Calcium 8.7 mg/dL (8.5-10.1); Potassium 3.5 mmol/L (3.5-5.1)
[2020-02-16 11:03] LABS: BUN/Creatinine Ratio 13.1; Bilirubin, Total 1.3 mg/dL (0.2-1.0); Total Protein 7.4 g/dL (6.4-8.2)
== END | disposition home or self-care (01) ==
LOC: LAB 09:47
PROVIDERS: ATTEND Podiatrist
DX: Z01.818 Encounter for other preprocedural examination (principal)
CPT/HCPCS: 36415; 80053; 84443; 85025; 85652

== ENCOUNTER → 2020-02-17 | Emergency (ER) | payer BC ==
[~2020-02-17] VITALS: Ht 182.9 cm; Wt 108.9 kg
[~2020-02-17] MED LIST changes: +ONDANSETRON ODT 4 MG TAB PO ONE; +POTASSIUM CHL 20 Meq TABLET PO ONE; +SODIUM CHLORIDE 0.9% 1,000 ML IV ONE
[2020-02-17 14:44] LABS: Eosinophils # (auto) 0.1 10 ^3/uL (0-0.8); Hemoglobin 17.4 g/dL (13.5-17.5); Lymphocytes # (auto) 0.5 10 ^3/uL (0.4-5.4); Mean Corpuscular Hemoglobin 34.9 pg (28.0-32.0); Neutrophils # (auto) 6.3 10 ^3/uL (1.6-8.6)
[2020-02-17 14:46] LABS: Basophils # (auto) 0 10 ^3/uL (0-0.2); Basophils % (auto) 0.6 % (0.0-2.0); Hematocrit 50.9 % (41.0-53.0); Mean Corpuscular Hgb Conc. 34.1 g/dL (32.0-36.0); Mean Corpuscular Volume 102.4 fL (80.0-100.0); Monocytes # (auto) 0.8 10 ^3/uL (0-1.3); Monocytes % (auto) 10.8 % (0.0-12.0); Neutrophils % (auto) 80.6 % (37.0-80.0); Nucleated Red Blood Cells % 0.2 %; Platelet Count (auto) 152 10^3/uL (140-450); Red Blood Cells 4.97 10^6/uL (4.5-5.90); Red Cell Distribution Width 19.6 % (11.8-14.3); White Blood Cell 7.8 10^3/uL (4.4-10.8)
[2020-02-17 14:47] LABS: Urine Bacteria NONE SEEN /hpf (None Seen); Urine Blood TRACE /uL (Negative); Urine Hyaline Cast FEW /lpf (0 - 2); Urine Mucus FEW (None Seen); Urine Specific Gravity 1.015 (1.001-1.035); Urine WBC <1 /hpf (0 - 3)
[2020-02-17 15:01] LABS: Albumin 3.6 g/dL (3.4-5.0); Calcium 9.2 mg/dL (8.5-10.1); Potassium 3.4 mmol/L (3.5-5.1)
[2020-02-17 15:05] LABS: BUN/Creatinine Ratio 16.4; Bilirubin, Total 3.7 mg/dL (0.2-1.0); Total Protein 7.4 g/dL (6.4-8.2)
[2020-02-17 20:41] LABS: Amylase 46 U/L (25-115); Lipase 122 U/L (73-393)
[2020-02-17 22:20] VITALS: BP 142/82
== END | disposition home or self-care (01) ==
LOC: ER 13:16
DX: I48.91 Unspecified atrial fibrillation (principal); N20.0 Calculus of kidney; E80.6 Other disorders of bilirubin metabolism; I70.90 Unspecified atherosclerosis; E87.1 Hypo-osmolality and hyponatremia; E87.6 Hypokalemia; I13.0 Hypertensive heart and chronic kidney disease with heart failure and stage 1 through stage 4 chronic kidney disease, or unspecified chronic kidney disease; N18.2 Chronic kidney disease, stage 2 (mild); I50.9 Heart failure, unspecified; R16.1 Splenomegaly, not elsewhere classified
CPT/HCPCS: 36415; 74176; 80053; 81001; 82150; 83690; 85025; 99284; Q0162

== ENCOUNTER → 2020-03-02 | Outpatient (CLI) | payer BC ==
[~2020-03-02] MED LIST changes: -ONDANSETRON ODT 4 MG TAB PO ONE; -POTASSIUM CHL 20 Meq TABLET PO ONE; -SODIUM CHLORIDE 0.9% 1,000 ML IV ONE
[2020-03-02 08:45] LABS: Basophils # (auto) 0.1 10 ^3/uL (0-0.2); Basophils % (auto) 0.8 % (0.0-2.0); Eosinophils # (auto) 0.2 10 ^3/uL (0-0.8); Monocytes # (auto) 0.6 10 ^3/uL (0-1.3); Nucleated Red Blood Cells % 0.2 %
[2020-03-02 08:47] LABS: Eosinophils % (auto) 2.6 % (0.0-7.0); Hematocrit 48.1 % (41.0-53.0); Hemoglobin 16.3 g/dL (13.5-17.5); Lymphocytes # (auto) 0.8 10 ^3/uL (0.4-5.4); Lymphocytes % (auto) 11.1 % (10.0-50.0); Mean Corpuscular Hemoglobin 35.3 pg (28.0-32.0); Mean Corpuscular Hgb Conc. 33.9 g/dL (32.0-36.0); Mean Corpuscular Volume 104.1 fL (80.0-100.0); Monocytes % (auto) 8.3 % (0.0-12.0); Neutrophils # (auto) 5.5 10 ^3/uL (1.6-8.6); Neutrophils % (auto) 77.2 % (37.0-80.0); Platelet Count (auto) 112 10^3/uL (140-450); Red Blood Cells 4.62 10^6/uL (4.5-5.90); White Blood Cell 7.1 10^3/uL (4.4-10.8)
[2020-03-02 09:16] LABS: Calcium 8.7 mg/dL (8.5-10.1); Potassium 3.9 mmol/L (3.5-5.1)
[2020-03-02 09:22] LABS: Albumin 3.3 g/dL (3.4-5.0); Bilirubin, Direct 0.8 mg/dL (0-0.2); Bilirubin, Total 2.8 mg/dL (0.2-1.0); Total Protein 6.9 g/dL (6.4-8.2)
== END | disposition home or self-care (01) ==
LOC: LAB 08:26
PROVIDERS: ATTEND Specialist
DX: I10 Essential (primary) hypertension (principal); R94.5 Abnormal results of liver function studies; D64.9 Anemia, unspecified; E78.5 Hyperlipidemia, unspecified; E11.9 Type 2 diabetes mellitus without complications; E03.9 Hypothyroidism, unspecified
CPT/HCPCS: 36415; 80048; 80061; 80076; 83036; 84443; 85025

== ENCOUNTER → 2020-03-02 | Outpatient (CLI) | payer BC | END | disposition home or self-care (01) | LOC: XY 08:53 | PROVIDERS: ATTEND Internal Medicine | DX: N28.1 Cyst of kidney, acquired (principal); N28.0 Ischemia and infarction of kidney | CPT/HCPCS: 93975 ==

== ENCOUNTER → 2020-04-25 | Outpatient (CLI) | payer BC ==
[2020-04-25 17:06] LABS: Basophils # (auto) 0.1 10 ^3/uL (0-0.2); Eosinophils # (auto) 0.1 10 ^3/uL (0-0.8); Eosinophils % (auto) 1.9 % (0.0-7.0); Hematocrit 47.5 % (41.0-53.0); Hemoglobin 15.9 g/dL (13.5-17.5); Lymphocytes % (auto) 13.6 % (10.0-50.0); Mean Corpuscular Hemoglobin 33.1 pg (28.0-32.0); Mean Corpuscular Hgb Conc. 33.5 g/dL (32.0-36.0); Mean Corpuscular Volume 98.8 fL (80.0-100.0); Monocytes # (auto) 0.7 10 ^3/uL (0-1.3); Monocytes % (auto) 9.7 % (0.0-12.0); Neutrophils # (auto) 5.2 10 ^3/uL (1.6-8.6); Neutrophils % (auto) 72.8 % (37.0-80.0); Nucleated Red Blood Cells % 0.3 %; Platelet Count (auto) 169 10^3/uL (140-450); Red Blood Cells 4.81 10^6/uL (4.5-5.90); Red Cell Distribution Width 14.2 % (11.8-14.3); White Blood Cell 7.1 10^3/uL (4.4-10.8)
[2020-04-25 18:03] LABS: Free T4 (Free Thyroxine) 1.36 ng/dL (0.89-1.76)
[2020-04-25 18:04] LABS: Albumin 3.3 g/dL (3.4-5.0); Bilirubin, Direct 0.5 mg/dL (0-0.2)
[2020-04-25 18:07] LABS: Alanine Aminotransferase 36 U/L (16-61); Alkaline Phosphatase 97 U/L (45-117); Aspartate Aminotransferase 55 U/L (15-37); Bilirubin, Total 1.2 mg/dL (0.2-1.0); Total Protein 7.5 g/dL (6.4-8.2)
[2020-04-25 18:17] LABS: Anion Gap 10 (5-15); BUN/Creatinine Ratio 14.9; Blood Urea Nitrogen 13 mg/dL (7-18); Carbon Dioxide 29 mmol/L (21-32); Chloride 98 mmol/L (98-107); GFR African American 115 mL/min; GFR Non-African American 95 mL/min; Glucose 150 mg/dL (74-106); Potassium 2.9 mmol/L (3.5-5.1); Sodium 137 mmol/L (136-145)
[2020-04-25 18:18] LABS: Calcium 8.3 mg/dL (8.5-10.1)
[2020-04-25 18:59] LABS: Cholesterol 219 mg/dL (< 200); HDL Cholesterol 91 mg/dL (40-59); LDL Cholesterol 116 mg/dL (< 100); Triglycerides 117 mg/dL (< 150)
[2020-04-25 19:00] LABS: Magnesium 1.6 mg/dL (1.6-2.6); Uric Acid 4.9 mg/dL (3.5-7.2)
== END | disposition home or self-care (01) ==
LOC: LAB 16:23
PROVIDERS: ATTEND Physician Assistant
DX: E11.9 Type 2 diabetes mellitus without complications (principal); I10 Essential (primary) hypertension; E03.9 Hypothyroidism, unspecified; E78.5 Hyperlipidemia, unspecified; D64.9 Anemia, unspecified; R94.5 Abnormal results of liver function studies; E34.9 Endocrine disorder, unspecified; E53.8 Deficiency of other specified B group vitamins
CPT/HCPCS: 36415; 80048; 80061; 80076; 82607; 83036; 83735; 84403; 84439; 84443; 84479; 84550; 85025

== ENCOUNTER → 2020-06-07 | Outpatient (CLI) | payer BC ==
[2020-06-07 14:40] LABS: Basophils # (auto) 0.1 10 ^3/uL (0-0.2); Eosinophils # (auto) 0.1 10 ^3/uL (0-0.8); Mean Corpuscular Hemoglobin 34.3 pg (28.0-32.0); Monocytes # (auto) 0.9 10 ^3/uL (0-1.3); Red Cell Distribution Width 17.3 % (11.8-14.3)
[2020-06-07 14:42] LABS: Basophils % (auto) 0.9 % (0.0-2.0); Eosinophils % (auto) 0.8 % (0.0-7.0); Hematocrit 42.8 % (41.0-53.0); Hemoglobin 14.7 g/dL (13.5-17.5); Lymphocytes % (auto) 10.4 % (10.0-50.0); Mean Corpuscular Hgb Conc. 34.4 g/dL (32.0-36.0); Mean Corpuscular Volume 99.8 fL (80.0-100.0); Monocytes % (auto) 9.5 % (0.0-12.0); Neutrophils # (auto) 7.7 10 ^3/uL (1.6-8.6); Neutrophils % (auto) 78.4 % (37.0-80.0); Nucleated Red Blood Cells % 0.1 %; Platelet Count (auto) 153 10^3/uL (140-450); Red Blood Cells 4.29 10^6/uL (4.5-5.90); White Blood Cell 9.8 10^3/uL (4.4-10.8)
[2020-06-07 15:45] LABS: Albumin 3.5 g/dL (3.4-5.0); Bilirubin, Direct 0.7 mg/dL (0-0.2)
[2020-06-07 15:48] LABS: Bilirubin, Total 2.8 mg/dL (0.2-1.0)
[2020-06-07 16:00] LABS: Potassium 3.2 mmol/L (3.5-5.1)
[2020-06-07 16:02] LABS: BUN/Creatinine Ratio 3.4; Calcium 8.1 mg/dL (8.5-10.1)
== END | disposition home or self-care (01) ==
LOC: LAB 14:26
PROVIDERS: ATTEND Specialist
DX: I10 Essential (primary) hypertension (principal); E11.9 Type 2 diabetes mellitus without complications; R94.5 Abnormal results of liver function studies; E03.9 Hypothyroidism, unspecified; D64.9 Anemia, unspecified; E78.5 Hyperlipidemia, unspecified
CPT/HCPCS: 36415; 80048; 80061; 80076; 83036; 84443; 84479; 85025

== ENCOUNTER → 2020-06-29 | Outpatient (CLI) | payer BC ==
[2020-06-29 09:28] LABS: Basophils # (auto) 0.1 10 ^3/uL (0-0.2); Basophils % (auto) 1.4 % (0.0-2.0); Eosinophils # (auto) 0.1 10 ^3/uL (0-0.8); Eosinophils % (auto) 1.2 % (0.0-7.0); Lymphocytes # (auto) 1.1 10 ^3/uL (0.4-5.4); Mean Corpuscular Hemoglobin 33.9 pg (28.0-32.0); Mean Corpuscular Volume 99.6 fL (80.0-100.0); Monocytes # (auto) 0.7 10 ^3/uL (0-1.3); Monocytes % (auto) 10.1 % (0.0-12.0); Neutrophils # (auto) 4.8 10 ^3/uL (1.6-8.6); Neutrophils % (auto) 71.3 % (37.0-80.0); Nucleated Red Blood Cells % 0.2 %; Platelet Count (auto) 165 10^3/uL (140-450); Red Blood Cells 4.72 10^6/uL (4.5-5.90); Red Cell Distribution Width 17.8 % (11.8-14.3); White Blood Cell 6.8 10^3/uL (4.4-10.8)
[2020-06-29 09:52] LABS: Potassium 3.6 mmol/L (3.5-5.1)
[2020-06-29 10:02] LABS: Albumin 3.5 g/dL (3.4-5.0); BUN/Creatinine Ratio 16.9; Bilirubin, Direct 0.4 mg/dL (0-0.2); Bilirubin, Total 1.3 mg/dL (0.2-1.0); Calcium 8.7 mg/dL (8.5-10.1); Total Protein 7.6 g/dL (6.4-8.2)
== END | disposition home or self-care (01) ==
LOC: LAB 08:59
PROVIDERS: ATTEND Internal Medicine
DX: I10 Essential (primary) hypertension (principal); E11.9 Type 2 diabetes mellitus without complications; R94.5 Abnormal results of liver function studies; D64.9 Anemia, unspecified; E03.9 Hypothyroidism, unspecified; E78.5 Hyperlipidemia, unspecified
CPT/HCPCS: 36415; 80048; 80061; 80076; 83036; 84443; 85025

== ENCOUNTER → 2020-07-22 | Outpatient (CLI) | payer BC ==
[2020-07-22 11:40] LABS: Albumin 3.7 g/dL (3.4-5.0); BUN/Creatinine Ratio 15.3; Bilirubin, Direct 0.9 mg/dL (0-0.2); Bilirubin, Total 2.5 mg/dL (0.2-1.0); Calcium 8.2 mg/dL (8.5-10.1); Total Protein 7.1 g/dL (6.4-8.2)
[2020-07-22 11:46] LABS: Hematocrit 47.9 % (41.0-53.0); Hemoglobin 16.4 g/dL (13.5-17.5)
[2020-07-22 11:48] LABS: Mean Corpuscular Hemoglobin 34.6 pg (28.0-32.0); Mean Corpuscular Hgb Conc. 34.3 g/dL (32.0-36.0); Mean Corpuscular Volume 100.8 fL (80.0-100.0); Platelet Count (auto) 105 10^3/uL (140-450); Red Blood Cells 4.75 10^6/uL (4.5-5.90); Red Cell Distribution Width 15.8 % (11.8-14.3); White Blood Cell 5.7 10^3/uL (4.4-10.8)
[2020-07-22 12:23] LABS: Neutrophils % (auto) 75.5 % (37.0-80.0)
[2020-07-22 12:24] LABS: Basophils # (auto) 0.1 10 ^3/uL (0-0.2); Basophils % (auto) 1.3 % (0.0-2.0); Eosinophils # (auto) 0.1 10 ^3/uL (0-0.8); Lymphocytes # (auto) 0.7 10 ^3/uL (0.4-5.4); Lymphocytes % (auto) 11.6 % (10.0-50.0); Monocytes # (auto) 0.6 10 ^3/uL (0-1.3); Monocytes % (auto) 10.6 % (0.0-12.0); Neutrophils # (auto) 4.4 10 ^3/uL (1.6-8.6)
[2020-07-22 14:50] LABS: Potassium 2.9 mmol/L (3.5-5.1)
[2020-07-23 05:06] LABS: RPR Non Reactive (Non Reactive)
== END | disposition home or self-care (01) ==
LOC: LAB 10:17
PROVIDERS: ATTEND Specialist
DX: I10 Essential (primary) hypertension (principal); E11.9 Type 2 diabetes mellitus without complications; D64.9 Anemia, unspecified; E78.5 Hyperlipidemia, unspecified; R94.5 Abnormal results of liver function studies; E03.9 Hypothyroidism, unspecified; B20 Human immunodeficiency virus [HIV] disease; D68.62 Lupus anticoagulant syndrome; A74.9 Chlamydial infection, unspecified; B00.9 Herpesviral infection, unspecified; K71.9 Toxic liver disease, unspecified; I77.6 Arteritis, unspecified; M06.9 Rheumatoid arthritis, unspecified; R76.8 Other specified abnormal immunological findings in serum
CPT/HCPCS: 36415; 80048; 80061; 80076; 83036; 85025; 85613; 85670; 85705; 85732; 86038; 86225; 86235; 86256; 86431; 86592; 86703; 86704; 86709; 86803; 87340

== ENCOUNTER → 2020-08-25 | Outpatient (CLI) | payer BC ==
[2020-08-25 08:48] LABS: Basophils # (auto) 0.1 10 ^3/uL (0-0.2); Basophils % (auto) 2.2 % (0.0-2.0); Eosinophils # (auto) 0.2 10 ^3/uL (0-0.8); Lymphocytes # (auto) 0.7 10 ^3/uL (0.4-5.4); Red Blood Cells 3.69 10^6/uL (4.5-5.90)
[2020-08-25 08:50] LABS: Eosinophils % (auto) 3.5 % (0.0-7.0); Hemoglobin 12.7 g/dL (13.5-17.5); Lymphocytes % (auto) 12.4 % (10.0-50.0); Mean Corpuscular Hemoglobin 34.4 pg (28.0-32.0); Mean Corpuscular Hgb Conc. 36.3 g/dL (32.0-36.0); Mean Corpuscular Volume 94.7 fL (80.0-100.0); Monocytes % (auto) 15.8 % (0.0-12.0); Neutrophils % (auto) 66.1 % (37.0-80.0); Platelet Count (auto) 156 10^3/uL (140-450); Red Cell Distribution Width 14.1 % (11.8-14.3)
[2020-08-25 08:57] LABS: Albumin 3.2 g/dL (3.4-5.0); Magnesium 1.7 mg/dL (1.6-2.6)
[2020-08-25 09:06] LABS: BUN/Creatinine Ratio 31.8; Bilirubin, Total 2.1 mg/dL (0.2-1.0); Total Protein 7.1 g/dL (6.4-8.2); Uric Acid 15.2 mg/dL (3.5-7.2)
[2020-08-25 10:51] LABS: Potassium 2.5 mmol/L (3.5-5.1)
== END | disposition home or self-care (01) ==
LOC: LAB 07:54
PROVIDERS: ATTEND Specialist
DX: I10 Essential (primary) hypertension (principal); E11.9 Type 2 diabetes mellitus without complications; R94.5 Abnormal results of liver function studies; D64.9 Anemia, unspecified; E03.9 Hypothyroidism, unspecified; E78.5 Hyperlipidemia, unspecified; E83.40 Disorders of magnesium metabolism, unspecified; R31.9 Hematuria, unspecified
CPT/HCPCS: 36415; 80053; 80061; 83036; 83735; 83880; 84443; 84550; 85025; 86200

== ENCOUNTER → 2020-09-29 | Outpatient (CLI) | payer BC ==
[2020-09-29 13:39] LABS: Albumin 3.7 g/dL (3.4-5.0); Calcium 8.5 mg/dL (8.5-10.1)
[2020-09-29 13:43] LABS: BUN/Creatinine Ratio 17.3; Bilirubin, Total 1.1 mg/dL (0.2-1.0); Total Protein 7.7 g/dL (6.4-8.2)
[2020-09-29 13:47] LABS: Potassium 2.7 mmol/L (3.5-5.1)
== END | disposition home or self-care (01) ==
LOC: LAB 11:51
PROVIDERS: ATTEND Physician Assistant
DX: I13.0 Hypertensive heart and chronic kidney disease with heart failure and stage 1 through stage 4 chronic kidney disease, or unspecified chronic kidney disease (principal); I50.33 Acute on chronic diastolic (congestive) heart failure; N18.2 Chronic kidney disease, stage 2 (mild); I87.2 Venous insufficiency (chronic) (peripheral); I73.9 Peripheral vascular disease, unspecified; E34.9 Endocrine disorder, unspecified
CPT/HCPCS: 36415; 80053; 84403

== ENCOUNTER → 2020-10-06 | Outpatient (CLI) | payer BC ==
[2020-10-06 13:15] LABS: Potassium 3.1 mmol/L (3.5-5.1)
== END | disposition home or self-care (01) ==
LOC: LAB 11:48
PROVIDERS: ATTEND Physician Assistant
DX: Z00.00 Encounter for general adult medical examination without abnormal findings (principal); E87.6 Hypokalemia; E29.1 Testicular hypofunction; R79.89 Other specified abnormal findings of blood chemistry
CPT/HCPCS: 36415; 84132; 84153; 84295; 84403

== ENCOUNTER → 2020-11-24 | Outpatient (CLI) | payer BC ==
[~2020-11-24] MED LIST changes: +BUME1TAB3 PO; +DILT60TA PO; +METO2.5T11 PO; +SILD50TA42 PO; +SIMV10TA84 PO
[2020-11-24 11:01] LABS: Basophils # (auto) 0.2 10 ^3/uL (0-0.2); Basophils % (auto) 2.6 % (0.0-2.0); Eosinophils # (auto) 0.2 10 ^3/uL (0-0.8); Hematocrit 42.7 % (41.0-53.0); Hemoglobin 15.1 g/dL (13.5-17.5); Lymphocytes # (auto) 1.2 10 ^3/uL (0.4-5.4); Mean Corpuscular Hemoglobin 32.9 pg (28.0-32.0); Mean Corpuscular Hgb Conc. 35.4 g/dL (32.0-36.0); Monocytes # (auto) 0.6 10 ^3/uL (0-1.3); Neutrophils # (auto) 4.6 10 ^3/uL (1.6-8.6); Neutrophils % (auto) 67.4 % (37.0-80.0); Nucleated Red Blood Cells % 0.1 %; Platelet Count (auto) 215 10^3/uL (140-450); Red Blood Cells 4.59 10^6/uL (4.5-5.90); Red Cell Distribution Width 15.6 % (11.8-14.3); White Blood Cell 6.8 10^3/uL (4.4-10.8)
[2020-11-24 11:11] LABS: Urine Bacteria NONE SEEN /hpf (None Seen); Urine Blood Negative /uL (Negative); Urine Specific Gravity 1.006 (1.001-1.035); Urine WBC 1 /hpf (0 - 3)
[2020-11-24 11:15] LABS: INR 1.13 (0.9-1.15); Partial Thromboplastin Time 33.9 sec (23.0-31.2)
[2020-11-24 11:46] LABS: BUN/Creatinine Ratio 15.7; Calcium 9.1 mg/dL (8.5-10.1)
[2020-11-24 11:58] LABS: Potassium 2.8 mmol/L (3.5-5.1)
== END | disposition home or self-care (01) ==
LOC: LAB 10:41
PROVIDERS: ATTEND Specialist
DX: I10 Essential (primary) hypertension (principal); D64.9 Anemia, unspecified; R31.9 Hematuria, unspecified; R79.0 Abnormal level of blood mineral
CPT/HCPCS: 36415; 80048; 81001; 85025; 85610; 85730; 87086

== ENCOUNTER 2020-11-30 06:43 | Day surgery (SDC) | payer BC ==
[~2020-11-30] VITALS: Ht 182.9 cm; Wt 97.5 kg
[~2020-11-30 06:43] MED LIST changes: -ASPI81CH43 PO; -DILT120C12 PO; -FURO1TAB31 PO
[2020-11-30] MEDS ORDERED: IOHEXOL 350 MG/ML 100ML IJ ONE (07:24)
[2020-11-30] MEDS ORDERED: LIDOCAINE 2%HCL (LOCAL ANESTH.) INJ 20ML MDV ONE ×2 (07:24→07:45)
[2020-11-30] MEDS ORDERED: HEPARIN IN NS 1000Units/500mL 0 ML ONE (07:25)
[2020-11-30] MEDS ORDERED: MIDAZOLAM HCL 1MG/1ML-2 ML VIAL ONE (08:18)
[2020-11-30] MEDS ORDERED: fentaNYL CITRATE 100 MCG/2 ML VL ONE (08:18)
[2020-11-30] MEDS ORDERED: SODIUM CHL 0.9% 0 ML ONE (08:18)
[2020-11-30] MEDS ORDERED: VERAPAMIL 2.5MG/ML INJ 2ML VIAL IV ONE (08:18)
[2020-11-30] MEDS ORDERED: ANGIOMAX 250 MG VIAL IV ONE (08:18)
[2020-11-30] MEDS ORDERED: HEPARIN SODIUM (PORCINE) 5000 UNITS/ML 1ML VIAL ONE (08:43)
[2020-11-30 08:44] LABS: Calcium 8.1 mg/dL (8.5-10.1)
[2020-11-30 08:48] LABS: BUN/Creatinine Ratio 14.1
[2020-11-30 08:54] LABS: Potassium 2.7 mmol/L (3.5-5.1)
[2020-11-30] MEDS ORDERED: POTASSIUM CHL 20MEQ/100ML 100 ML IV ONE ×3 (09:00→10:45)
[2020-11-30] MEDS ORDERED: POTASSIUM EFFERVESENT TAB 25 MEQ PO ONE ×2 (10:30→10:45)
[2020-11-30] MEDS ORDERED: APIX5TAB PO (11:55)
[2020-11-30] MEDS ORDERED: METH5T PO (11:55)
[2020-11-30] MEDS ORDERED: POTA-180 PO (11:55)
[2020-11-30] MEDS ORDERED: DILT360C6 PO (11:55)
[2020-11-30] MEDS ORDERED: SILD20TA12 PO (11:57)
[2020-11-30 16:02] LABS: BUN/Creatinine Ratio 14.4; Potassium 3.2 mmol/L (3.5-5.1)
== END 2020-11-30 17:25 | disposition home or self-care (01) ==
LOC: CATH 06:43
PROVIDERS: ATTEND Internal Medicine Cardiovascular Disease
DX: I25.10 Atherosclerotic heart disease of native coronary artery without angina pectoris (principal); I11.0 Hypertensive heart disease with heart failure; Z20.822 Contact with and (suspected) exposure to COVID-19; Z98.890 Other specified postprocedural states; Z79.899 Other long term (current) drug therapy; Z87.891 Personal history of nicotine dependence; Z88.8 Allergy status to other drugs, medicaments and biological substances
CPT/HCPCS: 36415; 80048; 93460; C1751; C1769; C1887; C1894; J1644; J2250; J3010; J3480; Q9967; U0003; 99152; 99153

== ENCOUNTER → 2020-12-21 | Day surgery (SDC) | payer BC ==
[2020-12-16 09:49] LABS: Urine Bacteria NONE SEEN /hpf (None Seen); Urine Blood Negative /uL (Negative); Urine Hyaline Cast FEW /lpf (0 - 2); Urine Specific Gravity 1.006 (1.001-1.035); Urine WBC 1 /hpf (0 - 3)
[2020-12-16 09:56] LABS: Basophils # (auto) 0.1 10 ^3/uL (0-0.2); Basophils % (auto) 1.4 % (0.0-2.0); Eosinophils # (auto) 0.2 10 ^3/uL (0-0.8); Eosinophils % (auto) 2.2 % (0.0-7.0); Hematocrit 41.2 % (41.0-53.0); Hemoglobin 14.7 g/dL (13.5-17.5); Lymphocytes # (auto) 1.4 10 ^3/uL (0.4-5.4); Lymphocytes % (auto) 16.1 % (10.0-50.0); Mean Corpuscular Hemoglobin 33.5 pg (28.0-32.0); Mean Corpuscular Hgb Conc. 35.6 g/dL (32.0-36.0); Mean Corpuscular Volume 94.2 fL (80.0-100.0); Monocytes # (auto) 0.9 10 ^3/uL (0-1.3); Monocytes % (auto) 10.7 % (0.0-12.0); Neutrophils # (auto) 5.9 10 ^3/uL (1.6-8.6); Neutrophils % (auto) 69.6 % (37.0-80.0); Nucleated Red Blood Cells % 0.6 %; Platelet Count (auto) 207 10^3/uL (140-450); Red Blood Cells 4.38 10^6/uL (4.5-5.90); Red Cell Distribution Width 15.3 % (11.8-14.3); White Blood Cell 8.4 10^3/uL (4.4-10.8)
[2020-12-16 10:10] LABS: Albumin 3.6 g/dL (3.4-5.0)
[2020-12-16 10:14] LABS: Bilirubin, Total 1.9 mg/dL (0.2-1.0); Total Protein 7.7 g/dL (6.4-8.2)
[2020-12-16 10:22] LABS: INR 1.24 (0.9-1.15); Partial Thromboplastin Time 33.9 sec (23.0-31.2); Potassium 2.5 mmol/L (3.5-5.1)
[2020-12-16 13:20] LABS: BUN/Creatinine Ratio 12.4
[~2020-12-21] VITALS: Ht 182.9 cm; Wt 97.5 kg
[~2020-12-21] MED LIST changes: +ALPH300C PO; +BROM500T2 PO; +BUPIVACAINE 0.5% P/F INJ 10 ML VIAL ONE; +COLC1CAP PO; +DILT360C6 PO; -DILT60TA PO; +LIDOCAINE 1% HCL (LOCAL ANESTH.) INJ 20ML MDV ONE; +LIDOCAINE 2% (LOCAL ANESTH.) PF 5ml SDV ONE; -METH5T PO; +METO2.5T PO; -METO2.5T11 PO; +MIDAZOLAM HCL 1MG/1ML-2 ML VIAL ONE; +MISCLIQ PO; +ONDANSETRON HCL 4 MG/2 ML VIAL IV PRN; -POTA-180 PO; +POTASSIUM CHLORIDE 40 MEQ in LACTATED RINGER'S 1,000 ML IV ONE; +PROPOFOL 10 MG/ML 20 ML IV ONE; -SILD50TA42 PO; +ceFAZolin 1GM/50ML 100 ML IV ONE; +fentaNYL CITRATE 100 MCG/2 ML VL ONE
[2020-12-21 14:15] VITALS: BP 140/84
== END | disposition home or self-care (01) ==
LOC: SUR 08:36
PROVIDERS: ATTEND Podiatrist
DX: M67.471 Ganglion, right ankle and foot (principal); L84 Corns and callosities; I48.91 Unspecified atrial fibrillation; E03.9 Hypothyroidism, unspecified; F17.200 Nicotine dependence, unspecified, uncomplicated; I11.0 Hypertensive heart disease with heart failure; Z68.29 Body mass index [BMI] 29.0-29.9, adult; Z20.822 Contact with and (suspected) exposure to COVID-19; Z98.890 Other specified postprocedural states; Z88.8 Allergy status to other drugs, medicaments and biological substances; Z79.899 Other long term (current) drug therapy
CPT/HCPCS: 28288; 36415; 80053; 81001; 84132; 85025; 85610; 85730; 88305; J0690; J2001; J2250; J2704; J3010; J3480; J3490; U0003

== ENCOUNTER 2020-12-30 10:29 | Day surgery (SDC) | payer BC ==
[2020-12-27 10:25] LABS: Urine Bacteria NONE SEEN /hpf (None Seen); Urine Blood Negative /uL (Negative); Urine Hyaline Cast FEW /lpf (0 - 2); Urine Specific Gravity 1.011 (1.001-1.035); Urine WBC 4 /hpf (0 - 3)
[2020-12-27 10:26] LABS: INR 1.16 (0.9-1.15); Partial Thromboplastin Time 31.6 sec (23.0-31.2)
[2020-12-27 10:36] LABS: Basophils # (auto) 0.2 10 ^3/uL (0-0.2); Basophils % (auto) 3.8 % (0.0-2.0); Eosinophils # (auto) 0.2 10 ^3/uL (0-0.8); Eosinophils % (auto) 4.2 % (0.0-7.0); Hematocrit 40.8 % (41.0-53.0); Hemoglobin 14.6 g/dL (13.5-17.5); Lymphocytes # (auto) 1.3 10 ^3/uL (0.4-5.4); Lymphocytes % (auto) 25.4 % (10.0-50.0); Mean Corpuscular Hemoglobin 33.9 pg (28.0-32.0); Mean Corpuscular Hgb Conc. 35.8 g/dL (32.0-36.0); Mean Corpuscular Volume 94.5 fL (80.0-100.0); Monocytes # (auto) 0.7 10 ^3/uL (0-1.3); Monocytes % (auto) 14.3 % (0.0-12.0); Neutrophils # (auto) 2.7 10 ^3/uL (1.6-8.6); Neutrophils % (auto) 52.3 % (37.0-80.0); Nucleated Red Blood Cells % 0.2 %; Platelet Count (auto) 159 10^3/uL (140-450); Red Blood Cells 4.32 10^6/uL (4.5-5.90); White Blood Cell 5.2 10^3/uL (4.4-10.8)
[2020-12-27 10:51] LABS: Albumin 3.6 g/dL (3.4-5.0)
[2020-12-27 10:55] LABS: BUN/Creatinine Ratio 13.5; Bilirubin, Total 1.2 mg/dL (0.2-1.0); Calcium 8.4 mg/dL (8.5-10.1); Total Protein 7.7 g/dL (6.4-8.2)
[2020-12-27 13:07] LABS: Potassium 2.6 mmol/L (3.5-5.1)
[~2020-12-30] VITALS: Ht 182.9 cm; Wt 97.1 kg
[~2020-12-30 10:29] MED LIST changes: -BUPIVACAINE 0.5% P/F INJ 10 ML VIAL ONE; -LIDOCAINE 1% HCL (LOCAL ANESTH.) INJ 20ML MDV ONE; -LIDOCAINE 2% (LOCAL ANESTH.) PF 5ml SDV ONE; -MIDAZOLAM HCL 1MG/1ML-2 ML VIAL ONE; -ONDANSETRON HCL 4 MG/2 ML VIAL IV PRN; -POTASSIUM CHLORIDE 40 MEQ in LACTATED RINGER'S 1,000 ML IV ONE; -PROPOFOL 10 MG/ML 20 ML IV ONE; -ceFAZolin 1GM/50ML 100 ML IV ONE; -fentaNYL CITRATE 100 MCG/2 ML VL ONE
[2020-12-30 13:46] LABS: BUN/Creatinine Ratio 9.4; Calcium 8.4 mg/dL (8.5-10.1)
[2020-12-30 13:58] LABS: Potassium 2.9 mmol/L (3.5-5.1)
[2020-12-30] MEDS ORDERED: POTASSIUM CHL 20MEQ/100ML 200 ML IV ONE (14:01)
[2020-12-30] MEDS ORDERED: LIDOCAINE 1% HCL (LOCAL ANESTH.) INJ 20ML MDV ONE (14:02)
[2020-12-30] MEDS ORDERED: MIDAZOLAM HCL 1MG/1ML-2 ML VIAL ONE (14:28)
[2020-12-30] MEDS ORDERED: fentaNYL CITRATE 100 MCG/2 ML VL IV ONE (14:35)
[2020-12-30] MEDS ORDERED: PROPOFOL 10 MG/ML 20 ML IV ONE (14:58)
[2020-12-30] MEDS ORDERED: ONDANSETRON HCL 4 MG/2 ML VIAL IV PRN (15:15)
[2020-12-30 15:45] VITALS: BP 132/65
== END 2020-12-30 16:00 | disposition home or self-care (01) ==
LOC: GI 10:29
PROVIDERS: ATTEND Internal Medicine Gastroenterology
DX: K59.00 Constipation, unspecified (principal); D12.4 Benign neoplasm of descending colon; K63.5 Polyp of colon; K63.89 Other specified diseases of intestine; I10 Essential (primary) hypertension; I48.91 Unspecified atrial fibrillation; G47.30 Sleep apnea, unspecified; E87.6 Hypokalemia; M10.9 Gout, unspecified; K57.30 Diverticulosis of large intestine without perforation or abscess without bleeding; K64.8 Other hemorrhoids; Z98.890 Other specified postprocedural states; Z79.899 Other long term (current) drug therapy; Z20.822 Contact with and (suspected) exposure to COVID-19
CPT/HCPCS: 36415; 45380; 45385; 80048; 80053; 81001; 85025; 85610; 85730; 88305; J2001; J2250; J2704; J3010; J3480; J7030; U0003

== ENCOUNTER → 2021-03-21 | Outpatient (CLI) | payer BC ==
[2021-03-21 08:37] LABS: Basophils # (auto) 0.1 10 ^3/uL (0-0.2); Eosinophils # (auto) 0.3 10 ^3/uL (0-0.8); Lymphocytes # (auto) 1.3 10 ^3/uL (0.4-5.4); Monocytes # (auto) 0.9 10 ^3/uL (0-1.3)
[2021-03-21 08:40] LABS: Basophils % (auto) 1.5 % (0.0-2.0); Eosinophils % (auto) 4.7 % (0.0-7.0); Hematocrit 43.5 % (41.0-53.0); Hemoglobin 15.6 g/dL (13.5-17.5); Lymphocytes % (auto) 20.6 % (10.0-50.0); Mean Corpuscular Hemoglobin 35.2 pg (28.0-32.0); Mean Corpuscular Hgb Conc. 35.8 g/dL (32.0-36.0); Mean Corpuscular Volume 98.3 fL (80.0-100.0); Monocytes % (auto) 14.8 % (0.0-12.0); Neutrophils # (auto) 3.6 10 ^3/uL (1.6-8.6); Neutrophils % (auto) 58.4 % (37.0-80.0); Nucleated Red Blood Cells % 0.1 %; Red Blood Cells 4.42 10^6/uL (4.5-5.90); Red Cell Distribution Width 15.1 % (11.8-14.3); White Blood Cell 6.2 10^3/uL (4.4-10.8)
[2021-03-21 09:00] LABS: Prostate Specific Antigen 1.79 ng/mL (0.0-4.0)
[2021-03-21 09:01] LABS: T3 Total 1.03 ng/mL (0.60-1.81)
[2021-03-21 09:14] LABS: Albumin 3.4 g/dL (3.4-5.0); BUN/Creatinine Ratio 14.5; Bilirubin, Total 1.8 mg/dL (0.2-1.0); Calcium 8.9 mg/dL (8.5-10.1); Total Protein 7.3 g/dL (6.4-8.2); Uric Acid 8.6 mg/dL (3.5-7.2)
[2021-03-21 10:00] LABS: Potassium 2.3 mmol/L (3.5-5.1)
== END | disposition home or self-care (01) ==
LOC: LAB 06:42
PROVIDERS: ATTEND Specialist
DX: I13.0 Hypertensive heart and chronic kidney disease with heart failure and stage 1 through stage 4 chronic kidney disease, or unspecified chronic kidney disease (principal); E11.22 Type 2 diabetes mellitus with diabetic chronic kidney disease; N18.9 Chronic kidney disease, unspecified; I50.9 Heart failure, unspecified; M10.9 Gout, unspecified; E87.6 Hypokalemia; N40.0 Benign prostatic hyperplasia without lower urinary tract symptoms; R53.83 Other fatigue; R79.89 Other specified abnormal findings of blood chemistry; D64.9 Anemia, unspecified; R68.89 Other general symptoms and signs; E78.5 Hyperlipidemia, unspecified; R94.5 Abnormal results of liver function studies; M06.9 Rheumatoid arthritis, unspecified
CPT/HCPCS: 36415; 80053; 80061; 82306; 83036; 84153; 84403; 84436; 84443; 84480; 84550; 85025

== ENCOUNTER 2021-05-09 12:06 | Inpatient (IN) | payer BC ==
[~2021-05-09] VITALS: Ht 182.9 cm; Wt 108.9 kg
[2021-05-09 15:10] LABS: INR 1.19 (0.9-1.15); Partial Thromboplastin Time 34.6 sec (23.6-33.0)
[2021-05-09 15:16] LABS: Hematocrit 36.4 % (41.0-53.0); Hemoglobin 13.2 g/dL (13.5-17.5); Mean Corpuscular Hemoglobin 34.6 pg (28.0-32.0); Mean Corpuscular Hgb Conc. 36.3 g/dL (32.0-36.0); Mean Corpuscular Volume 95.2 fL (80.0-100.0); Red Blood Cells 3.82 10^6/uL (4.5-5.90); Red Cell Distribution Width 14.3 % (11.8-14.3); White Blood Cell 4.6 10^3/uL (4.4-10.8)
[2021-05-09 15:22] LABS: Basophils % (manual) 0 (0.0-2.0); Blast Cells 0; Metamyelocytes % 0; Myelocytes % 0; Promyelocytes % 0; Reactive Lymphocytes 0
[2021-05-09 15:23] LABS: Albumin 3.1 g/dL (3.4-5.0); Calcium 7.2 mg/dL (8.5-10.1)
[2021-05-09 15:27] LABS: BUN/Creatinine Ratio 11.8; Total Protein 6.8 g/dL (6.4-8.2)
[2021-05-09 15:31] LABS: Potassium 2.4 mmol/L (3.5-5.1)
[2021-05-09 15:40] LABS: Band Neutrophils % (manual) 4; Eosinophils % (manual) 2 (0-7); Lymphocytes % (manual) 20 (10.0-50.0); Monocytes % (manual) 14 (0-12)
[2021-05-09] MEDS ORDERED: MORPHINE SULFATE INJECTION 2 MG/ML SYRG IV PRN ×2 (16:15)
[2021-05-09] MEDS ORDERED: POTASSIUM CHL 20 Meq TABLET PO ONE (16:15)
[2021-05-09] MEDS ORDERED: HYDROcodone-ACET 5/325MG TAB PO PRN (16:15)
[2021-05-09] MEDS ORDERED: NITROGLYCERIN 0.4 MG SL TAB SL PRN (16:15)
[2021-05-09] MEDS ORDERED: ONDANSETRON HCL 4 MG/2 ML VIAL IV PRN (16:15)
[2021-05-09] MEDS: MAGNESIUM SULFATE 1GM/100ML 100 ML IV SCH ×2 (18:00→21:29)
[2021-05-09] MEDS ORDERED: LIDOCAINE 1% (LOCAL ANESTH.) PF 5ml SDV ID ONE (19:00)
[2021-05-09] MEDS: SODIUM CHLOR 0.9% PF (SALINE LOCK) 10ML VIAL/SYR IV SCH (21:30)
[2021-05-09] MEDS: APIXABAN 5 MG TAB PO SCH (21:30)
[2021-05-09 22:34] VITALS: BP 123/56
[2021-05-09 22:46] VITALS: BP 123/56
[2021-05-09] MEDS ORDERED: MAGNESIUM SULFATE 1GM/100ML 100 ML IV SCH (23:00)
[2021-05-10 05:00] VITALS: BP 119/58
[2021-05-10 06:22] LABS: Calcium 7.7 mg/dL (8.5-10.1)
[2021-05-10 06:26] LABS: BUN/Creatinine Ratio 12.3; Uric Acid 7.2 mg/dL (3.5-7.2)
[2021-05-10 09:00] VITALS: BP 156/91
[2021-05-10 09:02] LABS: Potassium 2.5 mmol/L (3.5-5.1)
[2021-05-10] MEDS ORDERED: POTASSIUM EFFERVESENT TAB 25 MEQ PO ONE (09:15)
[2021-05-10] MEDS ORDERED: POTASSIUM CHLORIDE 60 MEQ, LIDOCAINE 1% (LOCAL ANESTH.) 6 ML in SODIUM CHL 0.9% 500 ML IV ONE (09:15)
[2021-05-10] MEDS ORDERED: hydrALAZINE HCL 20 MG/ML VL IV PRN (09:15)
[2021-05-10] MEDS: SODIUM CHLOR 0.9% PF (SALINE LOCK) 10ML VIAL/SYR IV SCH ×2 (09:26→21:07)
[2021-05-10] MEDS: APIXABAN 5 MG TAB PO SCH ×2 (09:27→21:08)
[2021-05-10] MEDS: dilTIAZem HCL 180MG ER CAP PO SCH (09:27)
[2021-05-10] MEDS ORDERED: metOLazone 5 MG TAB PO SCH (10:00)
[2021-05-10] MEDS: LINEZOLID 600MG/300ML 300 ML IV SCH ×2 (10:00→21:08)
[2021-05-10] MEDS ORDERED: HCTZ 25 MG TAB PO SCH (10:00)
[2021-05-10] MEDS: SOD CHL 0.9%/ KCL 20MEQ 1,000 ML IV SCH ×2 (11:26→20:15)
[2021-05-10 12:54] VITALS: BP 124/78
[2021-05-10 16:30] LABS: Urine Bacteria NONE SEEN /hpf (None Seen); Urine Blood Negative /uL (Negative); Urine Specific Gravity 1.011 (1.001-1.035); Urine WBC 1 /hpf (0 - 3)
[2021-05-10 16:45] LABS: Protein, Urine 30.6 mg/dL (0.0-11.9)
[2021-05-10 17:00] VITALS: BP 121/81
[2021-05-10] MEDS: PRAVASTATIN SODIUM 20 MG TAB PO SCH (21:08)
[2021-05-10 22:29] VITALS: BP 128/82
[2021-05-10] MEDS: ACETAMINOPHEN 500 MG TAB PO PRN (23:52)
[2021-05-11] MEDS: SOD CHL 0.9%/ KCL 20MEQ 1,000 ML IV SCH ×2 (04:15→16:15)
[2021-05-11 05:16] VITALS: BP 161/97
[2021-05-11 05:56] LABS: Mean Corpuscular Hemoglobin 35.3 pg (28.0-32.0); Mean Corpuscular Hgb Conc. 36.3 g/dL (32.0-36.0); Mean Corpuscular Volume 97.2 fL (80.0-100.0); Red Cell Distribution Width 14.3 % (11.8-14.3); White Blood Cell 3.3 10^3/uL (4.4-10.8)
[2021-05-11 05:58] LABS: Hematocrit 31.5 % (41.0-53.0); Hemoglobin 11.4 g/dL (13.5-17.5); Red Blood Cells 3.25 10^6/uL (4.5-5.90)
[2021-05-11 06:03] LABS: Basophils % (manual) 0 (0.0-2.0); Blast Cells 0; Metamyelocytes % 0; Myelocytes % 0; Promyelocytes % 0; Reactive Lymphocytes 0
[2021-05-11 06:31] LABS: Albumin 2.5 g/dL (3.4-5.0); BUN/Creatinine Ratio 12.1; Bilirubin, Total 2.2 mg/dL (0.2-1.0); Calcium 7.4 mg/dL (8.5-10.1); Magnesium 1.5 mg/dL (1.6-2.6); Phosphorus 2.3 mg/dL (2.5-4.90); Total Protein 5.6 g/dL (6.4-8.2)
[2021-05-11 06:38] LABS: Potassium 2.9 mmol/L (3.5-5.1)
[2021-05-11 06:53] LABS: Band Neutrophils % (manual) 2; Eosinophils % (manual) 4 (0-7); Lymphocytes % (manual) 13 (10.0-50.0); Monocytes % (manual) 5 (0-12)
[2021-05-11] MEDS ORDERED: POTASSIUM CHL 20 Meq TABLET PO ONE ×3 (07:15→19:00)
[2021-05-11 08:00] VITALS: BP 150/92
[2021-05-11] MEDS: MAGNESIUM SULFATE 1GM/100ML 100 ML IV SCH ×2 (08:49→10:11)
[2021-05-11] MEDS: dilTIAZem HCL 180MG ER CAP PO SCH (09:54)
[2021-05-11] MEDS: APIXABAN 5 MG TAB PO SCH ×2 (09:54→21:24)
[2021-05-11] MEDS: SODIUM CHLOR 0.9% PF (SALINE LOCK) 10ML VIAL/SYR IV SCH ×2 (09:54→21:24)
[2021-05-11] MEDS ORDERED: MAGNESIUM OXIDE 400 MG TAB PO ONE (10:15)
[2021-05-11] MEDS ORDERED: POTASSIUM PHOSPHATE 22 MEQ in SODIUM CHL 0.9% 100 ML IV ONE (11:00)
[2021-05-11] MEDS: LINEZOLID 600MG/300ML 300 ML IV SCH ×2 (11:09→21:24)
[2021-05-11 12:00] VITALS: BP 133/87
[2021-05-11 16:00] VITALS: BP 125/81
[2021-05-11] MEDS: AMIODARONE HCL 200 MG TAB PO SCH ×2 (16:38→21:24)
[2021-05-11] MEDS: MAGNESIUM OXIDE 400 MG TAB PO SCH (21:24)
[2021-05-11] MEDS: SILDENAFIL CITRATE 20 MG TAB PO SCH (21:24)
[2021-05-11] MEDS: PRAVASTATIN SODIUM 20 MG TAB PO SCH (21:25)
[2021-05-11 22:00] VITALS: BP 107/66
[2021-05-11] MEDS ORDERED: CARVEDILOL 3.125 MG TAB PO SCH (22:00)
[2021-05-11] MEDS ORDERED: METOPROLOL TARTRATE 25 MG TAB PO SCH (22:00)
[2021-05-12 05:00] VITALS: BP 119/78
[2021-05-12] MEDS: SOD CHL 0.9%/ KCL 20MEQ 1,000 ML IV SCH ×4 (05:47→22:38)
[2021-05-12 07:22] LABS: Albumin 2.9 g/dL (3.4-5.0); BUN/Creatinine Ratio 13.3; Calcium 8.5 mg/dL (8.5-10.1); Magnesium 1.9 mg/dL (1.6-2.6); Potassium 3.9 mmol/L (3.5-5.1)
[2021-05-12 07:24] LABS: Bilirubin, Total 3.4 mg/dL (0.2-1.0); Total Protein 6.6 g/dL (6.4-8.2)
[2021-05-12] MEDS ORDERED: LIDOCAINE 1% HCL (LOCAL ANESTH.) INJ 20ML MDV ID ONE (07:45)
[2021-05-12 08:00] VITALS: BP 135/78
[2021-05-12] MEDS ORDERED: CEFTRIAXONE SODIUM 2 GM in D5W 5% 50 ML IV ONE (10:30)
[2021-05-12] MEDS: MAGNESIUM OXIDE 400 MG TAB PO SCH ×2 (10:50→22:08)
[2021-05-12] MEDS: APIXABAN 5 MG TAB PO SCH ×2 (10:50→22:08)
[2021-05-12] MEDS: SODIUM CHLOR 0.9% PF (SALINE LOCK) 10ML VIAL/SYR IV SCH ×2 (10:51→22:07)
[2021-05-12] MEDS: dilTIAZem HCL 180MG ER CAP PO SCH (10:53)
[2021-05-12] MEDS: AMIODARONE HCL 200 MG TAB PO SCH ×2 (10:53→22:08)
[2021-05-12 12:00] VITALS: BP 133/95
[2021-05-12] MEDS: SILDENAFIL CITRATE 20 MG TAB PO SCH ×2 (12:30→22:09)
[2021-05-12 22:00] VITALS: BP 119/72
[2021-05-12] MEDS: DAPTOmycin 500 MG in SODIUM CHL 0.9% 50 ML IV SCH (22:07)
[2021-05-12] MEDS: PRAVASTATIN SODIUM 20 MG TAB PO SCH (22:08)
[2021-05-13 05:00] VITALS: BP 129/83
[2021-05-13] MEDS: SOD CHL 0.9%/ KCL 20MEQ 1,000 ML IV SCH ×2 (06:15→16:00)
[2021-05-13 06:36] LABS: Hematocrit 33.1 % (41.0-53.0); Hemoglobin 11.5 g/dL (13.5-17.5); Mean Corpuscular Hemoglobin 34.4 pg (28.0-32.0); Mean Corpuscular Hgb Conc. 34.6 g/dL (32.0-36.0); Mean Corpuscular Volume 99.4 fL (80.0-100.0); Red Blood Cells 3.33 10^6/uL (4.5-5.90); Red Cell Distribution Width 14.7 % (11.8-14.3)
[2021-05-13 06:49] LABS: Albumin 2.4 g/dL (3.4-5.0); Calcium 8.1 mg/dL (8.5-10.1); Potassium 3.7 mmol/L (3.5-5.1)
[2021-05-13 06:50] LABS: White Blood Cell 1.7 10^3/uL (4.4-10.8)
[2021-05-13 06:51] LABS: BUN/Creatinine Ratio 11.9; Basophils % (manual) 0 (0.0-2.0); Blast Cells 0; Myelocytes % 0; Promyelocytes % 0; Reactive Lymphocytes 0
[2021-05-13 06:56] LABS: Bilirubin, Total 1.6 mg/dL (0.2-1.0); Total Protein 5.8 g/dL (6.4-8.2)
[2021-05-13 07:33] LABS: Band Neutrophils % (manual) 2; Eosinophils % (manual) 11 (0-7); Lymphocytes % (manual) 42 (10.0-50.0); Metamyelocytes % 1; Monocytes % (manual) 18 (0-12)
[2021-05-13] MEDS: MAGNESIUM OXIDE 400 MG TAB PO SCH ×2 (08:15→21:38)
[2021-05-13] MEDS: AMIODARONE HCL 200 MG TAB PO SCH ×2 (08:15→21:39)
[2021-05-13] MEDS: APIXABAN 5 MG TAB PO SCH ×2 (08:15→21:38)
[2021-05-13] MEDS: SODIUM CHLOR 0.9% PF (SALINE LOCK) 10ML VIAL/SYR IV SCH ×2 (08:16→21:39)
[2021-05-13] MEDS: dilTIAZem HCL 180MG ER CAP PO SCH (08:16)
[2021-05-13 09:00] VITALS: BP 142/91
[2021-05-13] MEDS ORDERED: DAPTOmycin 500 MG in SODIUM CHL 0.9% 50 ML IV SCH (10:00)
[2021-05-13] MEDS: CEFTRIAXONE SODIUM 2 GM in D5W 5% 50 ML IV SCH (10:55)
[2021-05-13 11:41] LABS: Hematocrit 35.1 % (41.0-53.0); Mean Corpuscular Hemoglobin 34.4 pg (28.0-32.0); Mean Corpuscular Hgb Conc. 34.3 g/dL (32.0-36.0); Mean Corpuscular Volume 100.4 fL (80.0-100.0); Red Cell Distribution Width 14.4 % (11.8-14.3)
[2021-05-13 11:43] LABS: White Blood Cell 1.8 10^3/uL (4.4-10.8)
[2021-05-13 11:44] LABS: Basophils % (manual) 0 (0.0-2.0); Blast Cells 0; Myelocytes % 0; Promyelocytes % 0; Reactive Lymphocytes 0
[2021-05-13] MEDS: SILDENAFIL CITRATE 20 MG TAB PO SCH ×2 (11:45→21:38)
[2021-05-13 12:05] LABS: Band Neutrophils % (manual) 5; Eosinophils % (manual) 9 (0-7); Lymphocytes % (manual) 37 (10.0-50.0); Metamyelocytes % 2; Monocytes % (manual) 20 (0-12)
[2021-05-13 13:00] VITALS: BP 115/66
[2021-05-13] MEDS ORDERED: CLOP75TA70 PO (16:37)
[2021-05-13] MEDS ORDERED: CHOL20007 PO (16:40)
[2021-05-13 17:00] VITALS: BP 134/95
[2021-05-13] MEDS ORDERED: BENZ0.5T19 PO (17:16)
[2021-05-13] MEDS ORDERED: LISI40TA11 PO (17:16)
[2021-05-13] MEDS ORDERED: QUET50TA27 PO (17:16)
[2021-05-13] MEDS ORDERED: DONE10TA5 PO (17:16)
[2021-05-13] MEDS ORDERED: METO25TA93 PO (17:16)
[2021-05-13] MEDS ORDERED: LEVO50TA7 PO (17:16)
[2021-05-13] MEDS ORDERED: AMAN100C12 PO (17:16)
[2021-05-13] MEDS ORDERED: AMLO-489 PO (17:16)
[2021-05-13] MEDS: PRAVASTATIN SODIUM 20 MG TAB PO SCH (21:38)
[2021-05-13] MEDS: DAPTOmycin 500 MG in SODIUM CHL 0.9% 50 ML IV SCH (21:43)
[2021-05-13 22:00] VITALS: BP 124/80
[2021-05-14 05:00] VITALS: BP 135/89
[2021-05-14 06:48] LABS: Hemoglobin 10.9 g/dL (13.5-17.5)
[2021-05-14 06:49] LABS: Hematocrit 31.5 % (41.0-53.0); Mean Corpuscular Hemoglobin 34.2 pg (28.0-32.0); Mean Corpuscular Hgb Conc. 34.6 g/dL (32.0-36.0); Mean Corpuscular Volume 98.7 fL (80.0-100.0); Red Blood Cells 3.19 10^6/uL (4.5-5.90); Red Cell Distribution Width 14.3 % (11.8-14.3)
[2021-05-14 06:58] LABS: White Blood Cell 1.7 10^3/uL (4.4-10.8)
[2021-05-14 07:00] LABS: Band Neutrophils % (manual) 0; Basophils % (manual) 0 (0.0-2.0); Blast Cells 0; Metamyelocytes % 0; Promyelocytes % 0; Reactive Lymphocytes 0
[2021-05-14 07:11] LABS: Potassium 4.1 mmol/L (3.5-5.1)
[2021-05-14 07:20] LABS: Albumin 2.6 g/dL (3.4-5.0); BUN/Creatinine Ratio 11.8; Bilirubin, Total 0.9 mg/dL (0.2-1.0); Calcium 8.2 mg/dL (8.5-10.1); Magnesium 1.8 mg/dL (1.6-2.6); Total Protein 5.7 g/dL (6.4-8.2)
[2021-05-14 07:29] LABS: Eosinophils % (manual) 9 (0-7); Lymphocytes % (manual) 53 (10.0-50.0); Monocytes % (manual) 13 (0-12); Myelocytes % 1
[2021-05-14 09:00] VITALS: BP 127/92
[2021-05-14 09:08] LABS: Thyroid Stimulating Hormone 0.55 uIU/mL (0.358-3.74)
[2021-05-14] MEDS: AMIODARONE HCL 200 MG TAB PO SCH (09:13)
[2021-05-14] MEDS: dilTIAZem HCL 180MG ER CAP PO SCH (09:13)
[2021-05-14] MEDS: SILDENAFIL CITRATE 20 MG TAB PO SCH (09:14)
[2021-05-14] MEDS: APIXABAN 5 MG TAB PO SCH (09:14)
[2021-05-14] MEDS: SODIUM CHLOR 0.9% PF (SALINE LOCK) 10ML VIAL/SYR IV SCH (09:15)
[2021-05-14] MEDS: MAGNESIUM OXIDE 400 MG TAB PO SCH (09:15)
[2021-05-14] MEDS: CEFTRIAXONE SODIUM 2 GM in D5W 5% 50 ML IV SCH (09:33)
[2021-05-14] MEDS: ACETAMINOPHEN 500 MG TAB PO PRN (09:33)
[2021-05-14] MEDS ORDERED: SODIUM CHLORIDE 0.9% 1,000 ML IV SCH (10:30)
[2021-05-14 13:00] VITALS: BP 125/82
[2021-05-14 15:15] VITALS: BP 125/82
[2021-05-14 15:19] LABS: % Iron Saturation 15.1 % (20-55)
[2021-05-14 15:26] LABS: Ferritin 290.7 ng/mL (10-322)
[2021-05-14] MEDS ORDERED: DAPTOmycin 500 MG in SODIUM CHL 0.9% 50 ML IV SCH (16:00)
[2021-05-15 20:45] LABS: Folate (Folic Acid) 5.93 ng/mL (5.38-24); Free T4 (Free Thyroxine) 1.16 ng/dL (0.89-1.76)
== END 2021-05-14 17:09 | disposition home health service (06) | DRG 683 ==
LOC: ER 12:08 → TELE 16:18 → TELE-CENTR 20:45
PROVIDERS: ADMIT Nurse Practitioner Acute Care; ATTEND Internal Medicine
PROC: 02HV33Z Insertion of Infusion Device into Superior Vena Cava, Percutaneous Approach (ICD-10-PCS; principal; 2021-05-09)
DX: N17.0 Acute kidney failure with tubular necrosis (principal); I48.20 Chronic atrial fibrillation, unspecified; I47.2 Ventricular tachycardia; E87.3 Alkalosis; I50.32 Chronic diastolic (congestive) heart failure; E22.2 Syndrome of inappropriate secretion of antidiuretic hormone; M00.9 Pyogenic arthritis, unspecified; M86.8X7 Other osteomyelitis, ankle and foot; N25.81 Secondary hyperparathyroidism of renal origin; M19.071 Primary osteoarthritis, right ankle and foot; I27.20 Pulmonary hypertension, unspecified; I25.10 Atherosclerotic heart disease of native coronary artery without angina pectoris; I11.0 Hypertensive heart disease with heart failure; E87.6 Hypokalemia; E87.5 Hyperkalemia; E86.0 Dehydration; D69.6 Thrombocytopenia, unspecified; D64.9 Anemia, unspecified; J44.9 Chronic obstructive pulmonary disease, unspecified; T36.8X5A Adverse effect of other systemic antibiotics, initial encounter; M10.9 Gout, unspecified; E66.01 Morbid (severe) obesity due to excess calories; Z20.822 Contact with and (suspected) exposure to COVID-19; Y92.89 Other specified places as the place of occurrence of the external cause; Z79.01 Long term (current) use of anticoagulants; Z79.899 Other long term (current) drug therapy; Z87.442 Personal history of urinary calculi; Z88.8 Allergy status to other drugs, medicaments and biological substances; Z68.32 Body mass index [BMI] 32.0-32.9, adult
CPT/HCPCS: 36415; 36569; 71045; 71046; 73718; 76536; 76775; 80048; 80053; 80202; 81001; 82040; 82306; 82550; 82570; 82607; 82728; 82746; 83540; 83550; 83615; 83735; 83880; 83930; 83970; 84100; 84132; 84156; 84300; 84436; 84439; 84443; 84480; 84550; 85007; 85027; 85610; 85730; 86225; 86235; 87070; 87205; 87426; 93306; 96365; 96367; G0378; J0696; J2001; J2405; J7060

== ENCOUNTER → 2021-05-09 | Outpatient (CLI) | payer BC ==
[2021-05-09 12:15] LABS: Hematocrit 34.6 % (41.0-53.0); Hemoglobin 12.3 g/dL (13.5-17.5); Mean Corpuscular Hemoglobin 34.2 pg (28.0-32.0); Mean Corpuscular Hgb Conc. 35.5 g/dL (32.0-36.0); Mean Corpuscular Volume 96.1 fL (80.0-100.0); Red Blood Cells 3.59 10^6/uL (4.5-5.90); Red Cell Distribution Width 14.3 % (11.8-14.3); White Blood Cell 4.4 10^3/uL (4.4-10.8)
[2021-05-09 12:19] LABS: Basophils % (manual) 0 (0.0-2.0); Blast Cells 0; Metamyelocytes % 0; Myelocytes % 0; Promyelocytes % 0; Reactive Lymphocytes 0
[2021-05-09 13:01] LABS: BUN/Creatinine Ratio 11.7; Calcium 6.6 mg/dL (8.5-10.1); Potassium 3.1 mmol/L (3.5-5.1)
[2021-05-09 13:44] LABS: Band Neutrophils % (manual) 2; Eosinophils % (manual) 2 (0-7); Lymphocytes % (manual) 18 (10.0-50.0); Monocytes % (manual) 24 (0-12)
== END | disposition home or self-care (01) ==
LOC: LAB 12:04
PROVIDERS: ATTEND Podiatrist
DX: M86.9 Osteomyelitis, unspecified (principal)
CPT/HCPCS: 36415; 80048; 80202; 85007; 85027